=== PATIENT | female | born 1990 | race African-American/Black ===

== ENCOUNTER 2020-04-11 14:12 | Emergency (ER) | payer OTHER, SELFPAY ==
--- NOTE | ~2020-04-11 | CT_ITS ---
EXAMINATION: CTA brain carotid DATE: 04/11/2020 15:59 INDICATION: Right hemiparesis. TECHNIQUE: Computed tomographic angiography (CTA) of the head was performed without and with 100 mL O mnipaque-350 intravenous contrast. CTA of the neck was performed with intravenous contrast. Automated exposure control and iterative reconstruction technique were employed. The dose-length product was 1 783.17 mGy-cm. Maximum intensity projection and volume rendered 3D-reconstructions were created by georgie starks technologist on a separate workstation. COMPARISON: Head CT 12/13/2016 FINDINGS: HEAD CTA: There is no intracranial hemorrhage, acute infarction, or abnormal intracranial mass lesion . The ventricles are normal in size. The paranasal sinuses are clear. The orbits are normal. The mast oid air cells are normal. The vertebral arteries are codominant. There is no significant stenosis of the basilar artery or posterior cerebral arteries. There is no significant stenosis of the intracrani al internal carotid arteries or anterior or middle cerebral arteries. Anterior communicating artery i s normal. The posterior communicating arteries are normal. There is no aneurysm. NECK CTA: There is mild scarring at the lung apices. There are no pathologically enlarged lymph nodes . There is no significant stenosis of the vertebral arteries. There is no visible plaque in the proxi mal internal carotid arteries. There is 0% stenosis of the proximal right internal carotid artery rel ative to normal distal artery lumen diameter (NASCET criteria). There is 0% stenosis of the proximal left internal carotid artery relative to normal distal artery lumen diameter. There is kyphosis of ce rvical spine. IMPRESSION: 1. Normal brain. No aneurysm or significant intracranial arterial stenosis. 2. Normal neck arteries. Reviewed, dictated and finalized at location A.
[2020-04-11 14:16] VITALS: BP 155/96; PULSE 89; RESP 18; TEMP 36.1; O2SAT 99
--- NOTE | 2020-04-11 14:38 | ECG_ITS ---
Measurements Intervals [place] Rate: 81 P: 42 MA: 129 QRS: 26 QRSD: 105 T: 22 QT: 393 QTc: 459 Interpretive Statements SINUS RHYTHM WITH SINUS ARRHYTHMIA BORDERLINE ST-T WAVE ABNORMALITY- ANT/INF LEADS BASELINE ARTIFACT- I, II, III BORDERLINE ECG Electronically Signed On 04-11-2020 15:29:24 CDT by Booker Estrada D.O.
[2020-04-11 14:52] LABS: Basophils Percent Auto 0.4 % (0.2-1.2); Eosinophils Percent Auto 0.9 % (0-4.4); Hematocrit 41.1 % (37.0-47.0); Immature Granulocyte Absolute 0.01 K/mm3 (0.00-0.031); Immature Granulocyte Percent A 0.2 % (0-0.5); Lymphocytes Absolute Auto 2.32 K/mm3 (0.9-3.2); Lymphocytes Percent Auto 50.5 % (18.3-44.2); Mean Corpuscular HGB Conc 34.1 g/dl (32-36); Mean Corpuscular Hemoglobin 29.7 pg (26-34); Mean Corpuscular Volume 87.3 fl (80-100); Mean Platelet Volume 9.7 fl (7.4-10.4); Monocytes Absolute Auto 0.2 K/mm3 (0.1-0.6); Monocytes Percent Auto 5.2 % (2.6-8.5); Neutrophils Percent Auto 42.8 % (45.5-73.1); Platelet Count Result 361 k/mm3 (150-375); Red Blood Count 4.71 M/mm3 (4.2-5.4); Red Cell Distribution Width 12.9 % (11.5-14.5); White Blood Count 4.6 K/mm3 (4.5-10.0)
--- NOTE | 2020-04-11 15:01 | ED.NEUROSD ---
HPI - Neuro Symptoms/Deficit General Chief Complaint: Neuro Symptoms/Deficit Stated Complaint: right arm/leg numbness Time Seen by Provider: 04/11/20 14:20 Source: patient Mode of arrival: ambulatory Limitations: no limitations History of Present Illness HPI Narrative: This patient is a 29 year old female who presents for evaluation right arm and right leg numbness and pain that started 3 days ago. She has had constant pain to right arm and right leg. This pain may be worsened with movement. She also states some numbness and weakness. She denies dropping things with her right arm. She reports having a limp due to her right leg pain. She denies slurred speech, blurred vision, nausea, vomiting, dizziness or any other symptoms. Onset (ago): day(s) (3) Related Data Allergies Allergy/AdvReac Type Severity Reaction Status Date / Time No Known Allergies Allergy Unverified 04/11/20 14:15 Review of Systems Review of Systems: All systems reviewed & are unremarkable except as noted in HPI and below Constitutional: Constitutional: Denies chills and Denies fever(s) Eyes: Eyes: Denies blurry vision and Denies diplopia ENT: Denies dysphagia and Denies dizziness Cardiovascular: Cardiovascular: Denies chest pain and Denies slow heart rate Respiratory: Respiratory: Denies cough and Denies dyspnea Gastrointestinal: Gastrointestinal: Denies abdominal pain, Denies diarrhea, Denies nausea and Denies vomiting Genitourinary: Genitourinary: Denies hematuria, Denies flank pain and Denies vaginal discharge Musculoskeletal: Musculoskeletal: Denies back pain Neurologic: Denies dizziness, Reports focal weakness and Reports numbness PMFSH Past Medical History Medical History (Updated 04/11/20 @ 17:39 by Alicia Torres MD) Healthy adult Surgical History Surgical History (Updated 09/05/19 @ 09:00 by Nino Davis) H/O section Social History Social History (Updated 09/05/19 @ 09:00 by Nino Davis) Smoking status: Never smoker Alcohol intake: never Substance use: never Gender identity (if verbalized by the patient): Female Exam Narrative: Exam Narrative: GENERAL: Well-appearing, well-nourished, and in no acute distress. HEAD: Normocephalic, atraumatic EYES: PERRLA and EOMI, conjunctiva clear without discharge EARS: TM's clear bilaterally without erythema or dullness NOSE: Nares clear, no rhinorrhea or epistaxis THROAT:Mucous membranes moist, Oropharynx normal without erythema, exudate, peritonsillar swelling or fluctuance NECK: Supple, without lymphadenopathy or mass RESPIRATORY: No respiratory distress, Airway patent, Respirations non-labored, Clear to auscultation without rales, rhonchi or wheeze HEART: Regular rate and rhythm. No murmur heard. Normal peripheral pulses. ABDOMEN: Soft, nontender, nondistended, normal active bowel sounds. No masses. No rebound or guarding, No organomegaly. EXTREMITIES: No edema, normal strength with full range of motion. mild tenderness to right upper arm SKIN: Warm, dry, normal color without rash NEURO: Alert and oriented x3. CN 2-12 grossly intact. No focal deficits. PSYCH: Normal mood and affect. Course Reevaluation(s) Reevaluation #1: I have not found any neuro deficits on patient's physical exam and her CT is unremarkable. She is appears stable for discharge with outpatient evaluation. Date: 04/11/20 Time: 17:35 Consultations Consultation #1: I have discussed case with DR. Miranda who states patient can be evaluated as outpatient if stable. Date: 04/11/20 Time: 17:37 Vital Signs Vital signs: Vital Signs Temperature 97 F L 04/11/20 14:16 Pulse Rate 89 04/11/20 14:16 Respiratory Rate 18 04/11/20 14:16 Blood Pressure 155/96 H 04/11/20 14:16 Pulse Oximetry 99 04/11/20 14:16 Temperature 97 F L 04/11/20 14:16 Pulse Rate 78 04/11/20 18:12 Respiratory Rate 18 04/11/20 18:12 Blood Pressure 132/78 04/11/20 18:
[2020-04-11 15:03] LABS: Partial Thromboplastin Time 28.2 SECONDS (22.3-36.8)
[2020-04-11 15:08] LABS: Blood Urea Nitrogen 12 mg/dL (7-17); Calcium 10.3 mg/dL (8.4-10.2); Carbon Dioxide 25 mmol/L (22-30); Chloride 103 mmol/L (98-107); Estimated CRCL calculation 108 ml/min; Estimated Glomerular Filt Rate > 60; Glucose 77 mg/dL (65-105); Potassium 3.8 mmol/L (3.4-5.0); Sodium 138 mmol/L (137-145)
[2020-04-11 15:20] LABS: Troponin I < 0.012 ng/mL (0.000-0.034)
[2020-04-11 16:03] VITALS: BP 123/69; PULSE 74; RESP 20; O2SAT 99
[2020-04-11] MEDS: KETOROLAC 30 MG/ML VIAL (*BKC) IV PUSH (16:53)
[2020-04-11 18:12] VITALS: BP 132/78; PULSE 78; RESP 18; O2SAT 99
== END 2020-04-11 18:15 | disposition home or self-care (01) ==
PROVIDERS: Emergency Provider General Practice
DX: R20.2 Paresthesia of skin (principal); M79.601 Pain in right arm; R94.31 Abnormal electrocardiogram [ECG] [EKG]
CPT/HCPCS: 36415; 70496; 70498; 80048; 81025; 84484; 85025; 85610; 85730; 93005; 96374; 99284; J1885; Q9967

== ENCOUNTER 2020-06-09 02:34 | Emergency (ER) | payer OTHER, SELFPAY ==
--- NOTE | ~2020-06-09 | XR_ITS ---
EXAMINATION: XR chest 2V DATE: 06/09/2020 03:28 INDICATION: Left-sided chest pain and bilateral shoulder pain. TECHNIQUE: PA and lateral views of the chest were obtained. COMPARISON: Chest radiograph dated 12/04/2019 FINDINGS: The lungs remain clear with no focal airspace opacities, pulmonary edema, pleural effusion or pneumot horax. The cardiomediastinal silhouette is normal. Visualized bones and soft tissues are unremarkable . IMPRESSION: 1. Normal chest radiograph. Reviewed, dictated and finalized at location A. IMPRESSION: 1. Normal chest radiograph.
[2020-06-09 02:38] VITALS: BP 126/88; PULSE 91; RESP 18; TEMP 36; O2SAT 100
--- NOTE | 2020-06-09 02:46 | ED.GENADULT ---
HPI - General Adult General Chief complaint: Unspecified Stated complaint: sob, pain in both shoulders Time Seen by Provider: 06/09/20 02:38 History of Present Illness HPI narrative: Around 0100 she developed aching pain in the shoulders and arms bilaterally. She tried taking ibuprofen. The pain is now only in the left shoulder and radiates to the neck and down to the forearm. This is assoicated with mild pressure in the chaest and SOB. She has never had these symptoms before. Related Data Allergies Allergy/AdvReac Type Severity Reaction Status Date / Time No Known Allergies Allergy Unverified 04/11/20 14:15 Review of Systems Review of Systems: All systems reviewed & are unremarkable except as noted in HPI and below Constitutional: Constitutional: Denies fever(s) Cardiovascular: Cardiovascular: Reports chest pain and Reports radiating jaw, neck or arm pain Respiratory: Respiratory: Reports dyspnea Gastrointestinal: Gastrointestinal: Denies nausea PMFSH Past Medical History Medical History Healthy adult Surgical History Surgical History H/O section Social History Social History Smoking status: Never smoker Alcohol intake: never Substance use: never Gender identity (if verbalized by the patient): Female Exam Const: General: healthy appearing, no acute distress and alert Orientation/consciousness: patient oriented x3 HENMT: Head: normal to inspection Neck: Neck: normal visual inspection and no lymphadenopathy Chest: Chest palpation & inspection: no tenderness Resp: Effort & Inspection: normal respiratory effort Auscultation: clear to auscultation bilaterally, no rales, no rhonchi and no wheezes Cardio: Jugular venous distension: no JVD Rate: regular rate Rhythm: regular rhythm Heart sounds: no murmurs GI: GI Palp: Yes Soft to palpation and No Tenderness to palpation present (GI) Skin: General skin exam: normal color Neuro: General: patient oriented x3 and moves all extremities Speech: normal speech Psych: Appearance: well kempt Affect: normal affect Course Vital Signs Vital signs: Vital Signs Temperature 36.0 C L 06/09/20 02:38 Pulse Rate 91 06/09/20 02:38 Respiratory Rate 18 06/09/20 02:38 Blood Pressure 126/88 06/09/20 02:38 Pulse Oximetry 100 06/09/20 02:38 Temperature 36.3 C L 06/09/20 04:13 Pulse Rate 84 06/09/20 04:13 Respiratory Rate 19 06/09/20 04:13 Blood Pressure 129/63 06/09/20 04:13 Pulse Oximetry 100 06/09/20 04:13 Medical Decision Making MDM Narrative Medical decision making narrative: EKG unchanged from 2 months ago. Symptoms atypical. Vitals normal. CXR negative. Medical Records Medical records reviewed: Yes I reviewed the patient's medical records. Vital Signs Vital Signs: Vital Signs Temperature 36.0 C L 06/09/20 02:38 Pulse Rate 91 06/09/20 02:38 Respiratory Rate 18 06/09/20 02:38 Blood Pressure 126/88 06/09/20 02:38 Pulse Oximetry 100 06/09/20 02:38 Temperature 36.3 C L 06/09/20 04:13 Pulse Rate 84 06/09/20 04:13 Respiratory Rate 19 06/09/20 04:13 Blood Pressure 129/63 06/09/20 04:13 Pulse Oximetry 100 06/09/20 04:13 Imaging Data Attestation: I personally reviewed and interpreted this imaging study as follows: My impression: CXR negative for any acute process Discharge Plan Discharge Clinical Impression: Atypical chest pain Patient Disposition: Home, Self-Care Condition: Stable Instructions: Chest Pain (ED) Prescriptions: No Action naproxen 500 mg tablet 500 mg PO BID PRN (Reason: pain) Qty: 20 RF: 0 Interventions: Discharge Disposition Last Done: 06/09/20 04:13 IV Stop Time Documented Last Done: 06/09/20 04:14 Follow-up/Referrals: Breezy,RICHARD Whaley [Primary C
--- NOTE | 2020-06-09 03:05 | ECG_ITS ---
Measurements Intervals [place] Rate: 84 P: 50 VA: 136 QRS: 27 QRSD: 90 T: 13 QT: 372 QTc: 441 Interpretive Statements SINUS RHYTHM WITH SINUS ARRHYTHMIA BORDERLINE T WAVE ABNORMALITY- ANTERIOR LEADS BORDERLINE ECG Electronically Signed On 06-09-2020 7:18:37 CDT by Booker Estrada D.O.
[2020-06-09 04:13] VITALS: BP 129/63; PULSE 84; RESP 19; TEMP 36.3; O2SAT 100
[2020-06-09] MEDS: ACETAMINOPHEN 500 MG TABLET 1000 MG PO (04:15)
== END 2020-06-09 04:14 | disposition home or self-care (01) ==
PROVIDERS: Emergency Provider Emergency Medicine; PCP Nurse Practitioner
DX: R07.89 Other chest pain (principal); R94.31 Abnormal electrocardiogram [ECG] [EKG]
CPT/HCPCS: 71046; 93005; 99283; A9270

== ENCOUNTER 2020-09-05 23:23 | Emergency (ER) | payer OTHER, SELFPAY ==
--- NOTE | ~2020-09-05 | CT_ITS ---
EXAMINATION: CT brain wo con DATE: 09/06/2020 00:16 INDICATION: Left hemiparesis. TECHNIQUE: Computed tomography (CT) of the head was performed without intravenous contrast. The mA wa s adjusted according to patient size. Iterative reconstruction technique was employed. The dose-lengt h product was 605.33 mGy-cm. COMPARISON: Head CT 04/11/2020 FINDINGS: There is no intracranial hemorrhage, acute infarction, or abnormal intracranial mass lesion . The ventricles are normal in size. The paranasal sinuses are clear. There is a trace right mastoid effusion. IMPRESSION: 1. Normal brain. Reviewed, dictated and finalized at location A. R AND CHASSIS INSPECTOR IMPRESSION: 1. Normal brain.
--- NOTE | ~2020-09-05 | XR_ITS ---
EXAMINATION: XR chest 2V DATE: 09/06/2020 00:16 INDICATION: Left-sided numbness. Shortness of breath. TECHNIQUE: Frontal and lateral views of the chest were obtained. COMPARISON: Chest 2 views 06/09/2020 FINDINGS: The chest demonstrates clear lungs without pneumonia, pleural effusion, or pneumothorax. Th e heart size is normal. IMPRESSION: 1. No acute cardiopulmonary disease. Reviewed, dictated and finalized at location A. TUBE SETTER
[2020-09-05 23:21] VITALS: BP 131/87; PULSE 94; RESP 25; TEMP 37.1; O2SAT 100
--- NOTE | 2020-09-05 23:30 | ED.NEUROSD ---
HPI - Neuro Symptoms/Deficit General Chief Complaint: Neuro Symptoms/Deficit Stated Complaint: numbness/ tingling Time Seen by Provider: 09/05/20 23:30 Source: patient and EMS Mode of arrival: EMS Limitations: no limitations History of Present Illness HPI Narrative: Patient is a 30-year-old female who presents for evaluation of left-sided numbness and tingling that began approximately an hour prior to arrival. Patient states that she was laying down on the floor using her phone when all of a sudden her left hand and left leg began to tingle. She denied any actual numbness or weakness. She is able to ambulate. Patient called EMS, when EMS arrived patient was reporting some dizziness and was hyperventilating. She stated to them that she has a history of chronic headache pain and chronic back pain for which she has follow-up with her primary care physician. Currently, patient is quite comfortable appearing. She does still endorse tingling in her left upper extremity and left lower extremity. She denies any recent illnesses. She denies any fever, chills, chest pain or shortness of breath. She denies any headache or vision changes. Related Data Home Medications Medication Instructions Recorded Confirmed No Home Medications 09/05/20 09/05/20 Allergies Allergy/AdvReac Type Severity Reaction Status Date / Time No Known Allergies Allergy Verified 09/05/20 23:30 Review of Systems Review of Systems: Narrative: CONSTITUTIONAL: Denies fever, chills, or sweats. EYES: Denies visual changes, redness, or discharge. ENT: Denies rhinorrhea, congestion, sore throat, or otalgia. CARDIOVASCULAR: Denies chest pain, palpitations, or edema. RESPIRATORY: Denies cough or dyspnea. GASTROINTESTINAL: Denies abdominal pain, nausea, vomiting, or diarrhea. GENITOURINARY: Denies dysuria or hematuria. SKIN: Denies rash or itching. MUSCULOSKELETAL: Reports chronic back pain NEUROLOGIC: Denies headache, reports tingling in her left upper extremity and left lower extremity, denies weakness PMFSH Past Medical History Medical History (Updated 09/06/20 @ 01:21 by Kelsey Goodrich MD) Healthy adult Surgical History Surgical History H/O section Social History Social History Smoking status: Never smoker Alcohol intake: never Substance use: never Gender identity (if verbalized by the patient): Female Exam Narrative: Exam Narrative: GENERAL: Awake, alert, conversant HEAD: Normocephalic, atraumatic. EYES: PERRLA and EOMI. ENT: Nares clear, no rhinorrhea or epistaxis. Mucous membranes moist. NECK: Supple. CHEST: No respiratory distress, breathing even and non labored HEART: Regular rate, sinus rhythm ABDOMEN:Non distended, non tender EXTREMITIES: Normal range of motion. No edema. SKIN: Warm, dry, no rash. NEURO:No focal deficits. Alert and oriented x3. Finger to nose intact bilaterally. EOMs intact without nystagmus. No facial droop/asymmetry noted bilaterally. Grimace intact. Intact sensation in face. Hearing intact bilaterally. Shoulder shrug intact. Strength 5/5 bilateral upper extremities. Strength 5/5 bilateral lower extremities. Reflexes 2+ patellar. Heel to burch intact bilaterally. Patient is ambulatory with a narrow based, steady gait, no ataxia. Course Vital Signs Vital signs: Vital Signs Temperature 37.1 C 09/05/20 23:21 Pulse Rate 94 09/05/20 23:21 Respiratory Rate 25 H 09/05/20 23:21 Blood Pressure 131/87 09/05/20 23:21 Pulse Oximetry 100 09/05/20 23:21 Temperature 37.1 C 09/05/20 23:21 Pulse Rate 69 09/06/20 00:45 Respiratory Rate 15 09/06/20 00:45 Blood Pressure 121/77 09/06/20 00:31 Pulse Oximetry 100 09/06/20 00:45 MDM - Neuro Symptoms/Deficit MDM Narrative Medical decision making narrative: The patient presented for evaluation of left arm tingling, left l
[2020-09-05 23:52] VITALS: PULSE 73; RESP 15; O2SAT 100
[2020-09-06] VITALS (8 sets, daily range): BP systolic 121–135; BP diastolic 77–97; PULSE 62–76; RESP 14–17; O2SAT 98–100
[2020-09-06] MEDS: SODIUM CHLORIDE 0.9% IV 1,000 ML 999 ML IV CONT (00:01)
--- NOTE | 2020-09-06 00:06 | PC.NURSE ---
Patient taken to CT.
[2020-09-06 00:11] LABS: Basophils Percent Auto 0.2 % (0.2-1.2); Eosinophils Absolute Auto 0.1 K/mm3 (0-0.3); Eosinophils Percent Auto 1.1 % (0-4.4); Hematocrit 34.9 % (37.0-47.0); Hemoglobin 11.8 g/dL (12.0-15.0); Lymphocytes Absolute Auto 2.35 K/mm3 (0.9-3.2); Mean Corpuscular HGB Conc 33.8 g/dl (32-36); Mean Corpuscular Hemoglobin 29.3 pg (26-34); Mean Corpuscular Volume 86.6 fl (80-100); Mean Platelet Volume 8.9 fl (7.4-10.4); Monocytes Absolute Auto 0.2 K/mm3 (0.1-0.6); Monocytes Percent Auto 4.6 % (2.6-8.5); Neutrophils Percent Auto 43.1 % (45.5-73.1); Platelet Count Result 278 k/mm3 (150-375); Red Blood Count 4.03 M/mm3 (4.2-5.4); Red Cell Distribution Width 12.1 % (11.5-14.5); White Blood Count 4.6 K/mm3 (4.5-10.0)
[2020-09-06 00:22] LABS: Partial Thromboplastin Time 26.5 SECONDS (22.3-36.8); Prothrombin Time 14.2 Seconds (11.1-14.7)
[2020-09-06 00:23] LABS: Anion Gap 13 mmol/L (8-16); Blood Urea Nitrogen 13 mg/dL (7-17); Calcium 9.8 mg/dL (8.4-10.2); Carbon Dioxide 21 mmol/L (22-30); Chloride 105 mmol/L (98-107); Estimated CRCL calculation 110 ml/min; Estimated Glomerular Filt Rate > 60; Glucose 100 mg/dL (65-105); Potassium 3.3 mmol/L (3.4-5.0); Sodium 139 mmol/L (137-145)
--- NOTE | 2020-09-06 00:29 | PC.NURSE ---
Patient ambulated to the bathroom and back to her stretcher with a steady gait.
[2020-09-06 00:37] LABS: Troponin I < 0.012 ng/mL (0.000-0.034)
[2020-09-06 01:11] LABS: Add Urine Microscopic? YES; Appearance Urine Clear (Clear); Bacteria Urine Trace /hpf; Bilirubin Urine Negative (Negative); Blood Urine Negative (Negative); Color Urine Straw (Yellow); Glucose Urine UA Negative (Negative); Ketones Urine 1+ mg/dL (Negative); Leukocyte Esterase Ur Negative LEU/UL (Negative); Nitrate Urine Negative (Negative); Protein Urine Negative (Negative); RBC Urine 0-2 /hpf (0-2); Specific Grav Ur 1.012 (1.001-1.035); Squamous Epithelial Cell Urine Occasional /hpf (Few); Urobilinogen Urine Negative mg/dL (<2.0); WBC Urine 0-3 /hpf
== END 2020-09-06 01:34 | disposition home or self-care (01) ==
PROVIDERS: Emergency Provider Emergency Medicine; PCP Nurse Practitioner
DX: R20.2 Paresthesia of skin (principal); R94.31 Abnormal electrocardiogram [ECG] [EKG]
CPT/HCPCS: 36415; 70450; 71046; 80048; 81001; 81025; 84484; 85025; 85610; 85730; 93005; 96360; 99284; J7030

== ENCOUNTER 2021-03-12 17:16 | Emergency (ER) | payer BC, SELFPAY ==
[2021-03-12 17:31] VITALS: BP 139/81; PULSE 94; RESP 20; TEMP 36.4; O2SAT 99
[2021-03-12 17:42] LABS: Basophils Percent Auto 0.5 % (0.2-1.2); Hematocrit 36.6 % (37.0-47.0); Hemoglobin 12.1 g/dL (12.0-15.0); Lymphocytes Absolute Auto 1.92 K/mm3 (0.9-3.2); Lymphocytes Percent Auto 45.6 % (18.3-44.2); Mean Corpuscular HGB Conc 33.1 g/dl (32-36); Mean Corpuscular Hemoglobin 29.3 pg (26-34); Mean Corpuscular Volume 88.6 fl (80-100); Monocytes Absolute Auto 0.3 K/mm3 (0.1-0.6); Monocytes Percent Auto 6.9 % (2.6-8.5); Neutrophils Absolute Auto 1.9 K/mm3 (1.3-6.7); Platelet Count Result 285 k/mm3 (150-375); Red Blood Count 4.13 M/mm3 (4.2-5.4); Red Cell Distribution Width 12.5 % (11.5-14.5); White Blood Count 4.2 K/mm3 (4.5-10.0)
[2021-03-12 18:11] LABS: Beta HCG Quantitative 7.07 mIU/ML
[2021-03-12 18:37] LABS: Add Urine Microscopic? YES; Appearance Urine Cloudy (Clear); Bilirubin Urine Negative (Negative); Blood Urine 3+ (Negative); Color Urine Yellow (Yellow); Glucose Urine UA Negative (Negative); Ketones Urine Negative (Negative); Leukocyte Esterase Ur Negative LEU/UL (Negative); Mucus Urine Rare /lpf; Nitrate Urine Negative (Negative); Protein Urine 1+ mg/dL (Negative); RBC Urine >75 /hpf (0-2); Specific Grav Ur 1.024 (1.001-1.035); Squamous Epithelial Cell Urine Many /hpf (Few)
[2021-03-12 19:31] VITALS: BP 136/97; PULSE 83; RESP 18; O2SAT 99
--- NOTE | 2021-03-12 20:06 | ED.ABDPAIN ---
HPI - Abdominal Pain General Chief Complaint: MANAGER ACQUISITION Stated Complaint: 5 weeks ,r side,shoulder and neck pain Time Seen by Provider: 03/12/21 19:31 Source: patient and RN notes reviewed Mode of arrival: ambulatory Limitations: no limitations History of Present Illness HPI narrative: This is 30 year old female who presents for evaluation of right lower abdominal pain. Her last menstrual period was 02/11/21 and she reports having a positive test 1 week ago. She developed intermittent right lower abdominal pain for 2 days. She also reports right shoulder pain that is intermittent. She has not taken anything for pain. She also reports she developed vaginal bleeding today that is heavy like period. She denies fever, chills, nausea, vomiting. Related Data Home Medications Medication Instructions Recorded Confirmed No Home Medications 09/05/20 09/05/20 Allergies Allergy/AdvReac Type Severity Reaction Status Date / Time No Known Allergies Allergy Verified 03/12/21 20:51 Review of Systems Review of Systems: All systems reviewed & are unremarkable except as noted in HPI and below PMFSH Past Medical History Medical History (Updated 03/13/21 @ 00:00 by Jesus Gibson) Healthy adult Surgical History Surgical History H/O section Social History Social History Smoking status: Never smoker Alcohol intake: never Substance use: never Gender identity (if verbalized by the patient): Female Exam Const: General: no acute distress and alert Orientation/consciousness: patient oriented x3 Eyes: EOM: EOMs intact bilaterally Resp: Effort & Inspection: normal respiratory effort and no retractions Auscultation: clear to auscultation bilaterally Cardio: Rate: regular rate Rhythm: regular rhythm Heart sounds: no murmurs GI: GI Palp: Yes Soft to palpation, No Tenderness to palpation present (GI) and No Guarding due to palpation present (GI) Auscultation: normal bowel sounds : Speculum Exam - Cervix: Cervical os closed Bimanual Exam- Adnexa, other: no masses Other: dark blood in vaginal vault, no clots Skin: General skin exam: normal color Rashes: no rashes Neuro: General: patient oriented x3, moves all extremities and CN's II-XI intact bilaterally Psych: Mental Status: mental status grossly normal Affect: normal affect Course Reevaluation(s) Reevaluation #1: I Discussed with patient she is likely having a miscarriage . She was given return precautions and to return with worsening pain and bleeding. I performed bedside US and no Free fluid seen on exam. Date: 03/12/21 Time: 21:23 Consultations Consultation #1: I discussed case with Dr. monroy. She agrees patient is likely having miscarriage. She will follow up with patient. I will order repeat HCG on Monday and patient should call Dr. Monroy on Monday. Date: 03/12/21 Time: 21:04 Vital Signs Vital signs: Vital Signs Temperature 97.6 F 03/12/21 17:31 Pulse Rate 94 03/12/21 17:31 Respiratory Rate 20 03/12/21 17:31 Blood Pressure 139/81 03/12/21 17:31 Pulse Oximetry 99 03/12/21 17:31 Temperature 97.6 F 03/12/21 17:31 Pulse Rate 72 03/12/21 21:37 Respiratory Rate 16 03/12/21 21:37 Blood Pressure 120/94 H 03/12/21 21:37 Pulse Oximetry 100 03/12/21 21:37 MDM - Abdominal Pain Lab Data Attestation: I reviewed the patient's lab results. Result diagrams: 03/12/21 17:36 Labs: Lab Results 03/12/21 03/12/21 03/12/21 Range/Units 17:36 17:36 17:36 WBC 4.2 L (4.5-10.0) K/mm3 RBC 4.13 L (4.2-5.4) M/mm3 Hgb 12.1 (12.0-15.0) g/dL Hct 36.6 L (37.0-47.0) % MCV 88.6 (80-100) fl MCH 29.3 (26-34) pg MCHC 33.1 (32-36) g/dl RDW 12.5 (11.5-14.5) % Plt Count 285 (150-375) k/mm3 MPV 9.0 (7.4-10.4) f
[2021-03-12 21:08] VITALS: BP 121/81; PULSE 73
[2021-03-12 21:09] VITALS: BP 124/95; PULSE 71
[2021-03-12 21:10] VITALS: BP 130/97; PULSE 75
[2021-03-12 21:37] VITALS: BP 120/94; PULSE 72; RESP 16; O2SAT 100
== END 2021-03-12 21:36 | disposition home or self-care (01) ==
PROVIDERS: Emergency Medicine; Emergency Provider General Practice; PCP Nurse Practitioner
DX: O03.9 Complete or unspecified spontaneous abortion without complication (principal)
CPT/HCPCS: 36415; 81001; 81025; 84702; 85025; 85461; 96365; 99284; J0131

== ENCOUNTER 2021-03-15 15:54 | Outpatient (CLI) | payer BC, SELFPAY ==
[2021-03-15 17:49] LABS: Beta HCG Quantitative < 2.39 mIU/ML
== END 2021-03-15 15:55 | disposition home or self-care (01) ==
PROVIDERS: PCP Nurse Practitioner; Visit Provider Obstetrics & Gynecology Gynecology
DX: Z36.89 Encounter for other specified antenatal screening (principal)
CPT/HCPCS: 36415; 84702

== ENCOUNTER 2021-03-24 11:21 | Emergency (ER) | payer BC, SELFPAY ==
--- NOTE | ~2021-03-24 | US_ITS ---
EXAMINATION: US pelvic complete w TV DATE: 03/24/2021 17:19 INDICATION: Right adnexal pain Comparison:Right adnexal pain for 2 weeks TECHNIQUE: Multiple transabdominal and endovaginal sonographic images of the pelvis performed. FINDINGS: The uterus measures 8.4 x 4.1 x 3.9 cm. The endometrial complex measures 3 mm. The right ovary measures 3.9 x 3.2 x 1.8 cm and the left ovary measures 3.1 x 2.7 x 1.9 cm. There ar e small follicles in each ovary. Normal doppler signal in both ovaries. There is no free fluid in the pelvis. There are no abnormal masses seen on either side. IMPRESSION: 1. Normal pelvic ultrasound. Reviewed, dictated and finalized at location A.
[2021-03-24 11:34] VITALS: BP 119/84; PULSE 84; RESP 18; TEMP 36.2; O2SAT 100
[2021-03-24 14:28] VITALS: BP 129/85; PULSE 55; TEMP 36.7; O2SAT 100
[2021-03-24 16:02] VITALS: BP 128/84; PULSE 82; RESP 17; O2SAT 100
[2021-03-24] MEDS: SODIUM CHLORIDE 0.9% IV 1,000 ML 999 ML IV CONT (16:41)
--- NOTE | 2021-03-24 16:41 | ED.HA ---
HPI - Headache General Chief Complaint: Headache Stated Complaint: headache Time Seen by Provider: 03/24/21 16:04 Source: patient, RN notes reviewed and old records reviewed Mode of arrival: ambulatory Limitations: no limitations History of Present Illness HPI Narrative: Patient is a 30-year-old female who presents to emergency department with right adnexal pain and headache patient has had this discomfort since having a miscarriage 2 weeks ago patient was initially seen in the emergency department had bedside ultrasound and hCG had repeat values 2 days later which had normalized was diagnosed with miscarriage but never followed up with the recommended gynecological visit or primary care. Patient notes she has had persistent headache and right adnexal pain for the last 2 weeks. Patient denies vaginal discharge bleeding urinary symptoms or other complaints. Patient is G5, P4. Related Data Allergies Allergy/AdvReac Type Severity Reaction Status Date / Time No Known Allergies Allergy Verified 03/24/21 16:04 Review of Systems Review of Systems: All systems reviewed & are unremarkable except as noted in HPI and below PMFSH Past Medical History Medical History (Updated 03/24/21 @ 17:59 by Bubba Brown PA-C) Healthy adult Surgical History Surgical History H/O section Social History Social History Smoking status: Never smoker Alcohol intake: never Substance use: never Gender identity (if verbalized by the patient): Female Exam Narrative: Exam Narrative: GENERAL: Well-appearing, well-nourished, and in no acute distress. HEAD: Normocephalic, atraumatic. EYES: PERRLA and EOMI. ENT: Nares clear, no rhinorrhea or epistaxis. Mucous membranes moist. CHEST: Clear to auscultation. No respiratory distress. No wheezes rales or rhonchi HEART: Regular rate and rhythm. No murmur heard. Normal peripheral pulses. ABDOMEN: Soft, right adnexal tenderness remainder of abdomen nontender, nondistended, normal active bowel sounds. EXTREMITIES: Normal range of motion. No edema. SKIN: Warm, dry, no rash. NEURO: No focal deficits. Alert and oriented x3. PSYCH: Normal mood and affect. Course Course Emergency Course: Patient in the room no distress no high risk changes in her evaluation will be discharged home for outpatient follow-up made aware of case findings treatment plan and diagnosis Vital Signs Vital signs: Vital Signs Temperature 97.1 F L 03/24/21 11:34 Pulse Rate 84 03/24/21 11:34 Respiratory Rate 18 03/24/21 11:34 Blood Pressure 119/84 03/24/21 11:34 Pulse Oximetry 100 03/24/21 11:34 Temperature 98.0 F 03/24/21 14:28 Pulse Rate 69 03/24/21 17:53 Respiratory Rate 15 03/24/21 17:53 Blood Pressure 116/63 03/24/21 17:53 Pulse Oximetry 98 03/24/21 17:53 MDM - Headache MDM Narrative Medical decision making narrative: Patients headache was not sudden or maximal in onset. There are o focal neurological deficits on exam. Subarachnoid hemorrhage is felt to be unlikey at this time. There is no history of fever, and neck is supple without meningismus, making meningitis unlikely. No traumatic history or signs of trauma on exam. No risk factors for CVA, risk factors reviewed. NO ocular signs on exam and in history to suggest acute glaucoma. Patients headache is felt to be a reasonable candidate for outpatient evaluation Lab Data Result diagrams: 03/24/21 16:34 03/24/21 16:34 Labs: Lab Results 03/24/21 03/24/21 03/24/21 Range/Units 16:34 16:34 16:42 WBC 4.0 L (4.5-10.0) K/mm3 RBC 4.33 (4.2-5.4) M/mm3 Hgb 12.6 (12.0-15.0) g/dL Hct 37.9 (37.0-47.0) % MCV 87.5 (80-100) fl MCH 29.1 (26-34) pg MCHC 33.2 (32-36) g/dl RDW 12.7 (11.5-14.5) % Plt Count 272 (150-375) k/mm3 MPV 9.1 (7.4-10.
[2021-03-24 16:44] LABS: Basophils Percent Auto 0.5 % (0.2-1.2); Eosinophils Percent Auto 0.7 % (0-4.4); Hematocrit 37.9 % (37.0-47.0); Hemoglobin 12.6 g/dL (12.0-15.0); Immature Granulocyte Absolute 0.01 K/mm3 (0.00-0.031); Immature Granulocyte Percent A 0.2 % (0-0.5); Lymphocytes Absolute Auto 1.93 K/mm3 (0.9-3.2); Lymphocytes Percent Auto 47.8 % (18.3-44.2); Mean Corpuscular HGB Conc 33.2 g/dl (32-36); Mean Corpuscular Hemoglobin 29.1 pg (26-34); Mean Corpuscular Volume 87.5 fl (80-100); Mean Platelet Volume 9.1 fl (7.4-10.4); Monocytes Absolute Auto 0.2 K/mm3 (0.1-0.6); Monocytes Percent Auto 4.7 % (2.6-8.5); Neutrophils Absolute Auto 1.9 K/mm3 (1.3-6.7); Neutrophils Percent Auto 46.1 % (45.5-73.1); Platelet Count Result 272 k/mm3 (150-375); Red Blood Count 4.33 M/mm3 (4.2-5.4); Red Cell Distribution Width 12.7 % (11.5-14.5)
[2021-03-24 16:57] LABS: Add Urine Microscopic? NO; Appearance Urine Clear (Clear); Bilirubin Urine Negative (Negative); Blood Urine Negative (Negative); Color Urine Yellow (Yellow); Glucose Urine UA Negative (Negative); Ketones Urine Negative (Negative); Leukocyte Esterase Ur Negative LEU/UL (Negative); Nitrate Urine Negative (Negative); Protein Urine Negative (Negative); Specific Grav Ur 1.014 (1.001-1.035); Urobilinogen Urine Negative mg/dL (<2.0)
[2021-03-24 17:16] LABS: Alanine Aminotransferase 13 U/L (4-35); Albumin Level 4.6 g/dL (3.5-5.1); Alkaline Phosphatase 83 U/L (38-126); Anion Gap 8 mmol/L (8-16); Aspartate Amino Transferase 26 U/L (14-36); Bilirubin,Total 0.6 mg/dL (0.2-1.3); Blood Urea Nitrogen 13 mg/dL (7-17); Calcium 9.9 mg/dL (8.4-10.2); Carbon Dioxide 26 mmol/L (22-30); Chloride 105 mmol/L (98-107); Estimated CRCL calculation 96 ml/min; Estimated Glomerular Filt Rate > 60; Glucose 84 mg/dL (65-105); Sodium 139 mmol/L (137-145)
[2021-03-24] MEDS: KETOROLAC 30 MG/ML VIAL (*BKC) IV PUSH (17:49)
[2021-03-24 17:53] VITALS: BP 116/63; PULSE 69; RESP 15; O2SAT 98
== END 2021-03-24 18:11 | disposition home or self-care (01) ==
PROVIDERS: Emergency Medicine Emergency Medical Services; Emergency Provider Emergency Medicine; PCP Nurse Practitioner
DX: R51.9 Headache, unspecified (principal); R10.9 Unspecified abdominal pain
CPT/HCPCS: 36415; 76830; 76856; 80053; 81003; 81025; 85025; 96361; 96365; 96375; 99284; J0131; J1885; J7030

== ENCOUNTER 2021-10-20 18:12 | Emergency (ER) | payer BC, SELFPAY ==
--- NOTE | ~2021-10-20 | XR_ITS ---
EXAMINATION: XR chest 2V DATE: 10/20/2021 18:48 INDICATION: Midsternal and back pain radiating to the left side of the chest TECHNIQUE: PA and lateral views of the chest were obtained. COMPARISON: Chest radiograph dated 09/06/20 FINDINGS: The lungs remain clear with no focal airspace opacities, pulmonary edema, pleural effusion or pneumot horax. The cardiomediastinal silhouette is normal. Visualized bones and soft tissues are unremarkable . IMPRESSION: 1. Normal chest radiograph. Reviewed, dictated and finalized at location H. DENT PHYSICIAN IMPRESSION: 1. Normal chest radiograph.
--- NOTE | ~2021-10-20 | CT_ITS ---
EXAMINATION: CTA chest PE protocol DATE: 10/20/2021 23:53 INDICATION: Chest pain. Elevated d-dimer. TECHNIQUE: Computed tomography (CT) pulmonary angiogram of the chest was performed with 100 mL Omnipa que-350 intravenous contrast. Additional 3D reconstructions utilizing coronal maximum intensity proje ction (MIP) were performed. Automated exposure control and iterative reconstruction technique were em ployed. The dose-length product was 188.75 mGy-cm. COMPARISON: None FINDINGS: Excellent contrast opacification of the pulmonary arteries. There is mild streak artifact from dense contrast in the superior vena cava and right atrium. Minimal respiratory motion artifact which does n ot significantly limit evaluation. No pulmonary embolism. No pneumonia, pulmonary edema, pleural effu burton or pneumothorax. Heart size is normal. No pericardial effusion. Thoracic aorta is normal in jose rafael lissette with no dissection. No pathologically enlarged thoracic lymphadenopathy. Visualized upper abdomen is unremarkable. Pseudoarticulation between the posterior right fifth and sixth ribs. Bones are othe rwise unremarkable. IMPRESSION: 1. No pulmonary embolism or other acute cardiopulmonary disease. Reviewed, dictated and finalized at location . [employer]ES
[2021-10-20 18:18] VITALS: BP 128/85; PULSE 110; RESP 18; TEMP 37.7; O2SAT 100
--- NOTE | 2021-10-20 18:21 | ECG_ITS ---
Measurements Intervals [place] Rate: 103 P: 62 ND: 123 QRS: 37 QRSD: 72 T: 10 QT: 315 QTc: 412 Interpretive Statements SINUS TACHYCARDIA BORDERLINE ST-T WAVE ABNORMALITY- ANT/INF LEADS BORDERLINE ECG Electronically Signed On 10-21-2021 7:39:44 STRAIGHT CUTTER by Booker Estrada D.O.
[2021-10-20 18:37] LABS: Basophils Percent Auto 0.4 % (0.2-1.2); Hematocrit 35.9 % (37.0-47.0); Hemoglobin 12.1 g/dL (12.0-15.0); Lymphocytes Absolute Auto 0.45 K/mm3 (0.9-3.2); Lymphocytes Percent Auto 17.6 % (18.3-44.2); Mean Corpuscular HGB Conc 33.7 g/dl (32-36); Mean Corpuscular Hemoglobin 29.6 pg (26-34); Mean Corpuscular Volume 87.8 fl (80-100); Monocytes Absolute Auto 0.4 K/mm3 (0.1-0.6); Monocytes Percent Auto 16.4 % (2.6-8.5); Neutrophils Absolute Auto 1.7 K/mm3 (1.3-6.7); Neutrophils Percent Auto 65.6 % (45.5-73.1); Platelet Count Result 210 k/mm3 (150-375); Red Blood Count 4.09 M/mm3 (4.2-5.4); Red Cell Distribution Width 13.4 % (11.5-14.5); White Blood Count 2.6 K/mm3 (4.5-10.0)
[2021-10-20 18:47] LABS: INR 1.1; Prothrombin Time 14.2 Seconds (11.1-14.7)
[2021-10-20 18:48] LABS: Partial Thromboplastin Time 26.6 SECONDS (22.3-36.8)
[2021-10-20 18:49] LABS: Alanine Aminotransferase 14 U/L (4-35); Albumin Level 4.8 g/dL (3.5-5.1); Alkaline Phosphatase 102 U/L (38-126); Anion Gap 11 mmol/L (8-16); Aspartate Amino Transferase 23 U/L (14-36); Bilirubin,Total 0.2 mg/dL (0.2-1.3); Blood Urea Nitrogen 9 mg/dL (7-17); Calcium 9.4 mg/dL (8.4-10.2); Carbon Dioxide 17 mmol/L (22-30); Chloride 104 mmol/L (98-107); Estimated CRCL calculation 84 ml/min; Estimated Glomerular Filt Rate > 60; Glucose 100 mg/dL (65-110); Lipase 66 U/L (23-300); Potassium 3.5 mmol/L (3.4-5.0); Sodium 132 mmol/L (137-145)
[2021-10-20 18:59] LABS: Troponin I < 0.012 ng/mL (0.000-0.034)
[2021-10-20 22:19] VITALS: BP 117/83; PULSE 97; RESP 18; O2SAT 100
--- NOTE | 2021-10-20 22:36 | ED.CHESTPAIN ---
HPI - Chest Pain General Chief Complaint: Chest Pain Stated Complaint: back pain Time Seen by Provider: 10/20/21 22:24 Source: patient Mode of arrival: ambulatory Limitations: no limitations History of Present Illness HPI narrative: Patient is a 31-year-old female complaining of left chest wall pain, 6 out of 10, sharp, radiating to left upper back started yesterday. Patient also complaining of dysuria that started today. Patient denies any shortness of breath, abdominal pain, nausea, vomiting, diaphoresis, fever or chills. Related Data Allergies Allergy/AdvReac Type Severity Reaction Status Date / Time sumatriptan [From Imitrex] AdvReac Other Verified 10/20/21 22:23 Review of Systems Review of Systems: All systems reviewed & are unremarkable except as noted in HPI and below Constitutional: Constitutional: Denies body ache(s), Denies chills, Denies excessive sweating, Denies fatigue, Denies fever(s), Denies headache(s), Denies lethargy, Denies malaise, Denies weakness and Denies weight loss Eyes: Eyes: Denies blurry vision, Denies change in vision and Denies loss of vision ENT: Denies dizziness, Denies ear discharge, Denies headache(s), Denies lip swelling, Denies epistaxis, Denies nasal congestion, Denies neck pain, Denies throat swelling and Denies tongue swelling Cardiovascular: Cardiovascular: Denies diaphoresis, Denies rapid heart rate, Denies edema, Denies irregular heart rhythm, Denies lightheadedness, Denies palpitations, Denies dyspnea and Denies dyspnea on exertion Respiratory: Respiratory: Denies chest congestion, Denies cough, Denies hemoptysis, Denies dyspnea and Denies dyspnea on exertion Gastrointestinal: Gastrointestinal: Denies abdominal pain, Denies melena, Denies hematochezia, Denies diarrhea, Denies nausea, Denies vomiting and Denies hematemesis Musculoskeletal: Musculoskeletal: Denies abnormal gait, Denies deformity, Denies joint swelling, Denies limited range of motion, Denies neck pain and Denies numbness Neurologic: Denies Abnormal speech present, Denies abnormal gait, Denies confusion, Denies dizziness, Denies headache(s), Denies focal weakness, Denies loss of vision, Denies numbness, Denies Other visual disturbances, Denies Sensory deficit (Neuro) and Denies weakness Psychiatric: Psychiatric: Denies confusion, Denies depression, Denies auditory hallucinations, Denies homicidal ideation and Denies suicidal ideation Endocrine: Endocrine: Denies cold intolerance, Denies excessive sweating, Denies fatigue, Denies heat intolerance and Denies palpitations Hematologic/Lymphatic: Hematologic/Lymphatic: Denies easy bleeding and Denies easy bruising Allergic/Immunologic: Allergic/Immunologic: Denies lip swelling, Denies throat swelling and Denies tongue swelling PMFSH Past Medical History Medical History (Updated 10/21/21 @ 00:29 by Dinesh Louis MD) Healthy adult Surgical History Surgical History H/O section Social History Social History Smoking status: Never smoker Alcohol intake: never Substance use: never Gender identity (if verbalized by the patient): Female Comments Past medical history: None Family history: Negative for coronary artery disease, [place] Exam Const: General: cooperative, healthy appearing, comfortable, no acute distress, well developed, alert and awake; No confusion Orientation/consciousness: oriented to person, oriented to place, oriented to time, patient oriented x3 and No confusion Limitations: no limitations HENMT: Head: normal to inspection, normocephalic and atraumatic Ears: hearing grossly normal bilaterally, TM normal on the right and TM normal on the left General nose exam: Normal external nose present, Normal nares present and No nasal discharge present Face and sinus: normal facial exam Mouth: Yes Normal oral and palatal mucosa present
[2021-10-20 22:52] LABS: D Dimer 0.76 ug/mL (<0.48)
[2021-10-20 22:53] LABS: Troponin I < 0.012 ng/mL (0.000-0.034)
[2021-10-20 23:00] VITALS: BP 102/64; PULSE 89; RESP 19; O2SAT 99
[2021-10-20 23:15] VITALS: BP 114/73; PULSE 99; RESP 15; O2SAT 98
[2021-10-20 23:16] VITALS: PULSE 102; PULSE 107; RESP 25; O2SAT 99
[2021-10-20 23:28] LABS: Add Urine Microscopic? YES; Appearance Urine Clear (Clear); Bilirubin Urine Negative (Negative); Blood Urine Negative (Negative); Color Urine Yellow (Yellow); Glucose Urine UA Negative (Negative); Ketones Urine Negative (Negative); Leukocyte Esterase Ur Trace LEU/UL (Negative); Mucus Urine Rare /lpf; Nitrate Urine Negative (Negative); Protein Urine Negative (Negative); RBC Urine 0-2 /hpf (0-2); Specific Grav Ur 1.018 (1.001-1.035); Squamous Epithelial Cell Urine Many /hpf (Few); Urobilinogen Urine Negative mg/dL (<2.0)
[2021-10-21] VITALS: BP 116/80; PULSE 93; RESP 17; O2SAT 100
[2021-10-21 00:42] VITALS: BP 109/67; PULSE 99; RESP 20; O2SAT 99
== END 2021-10-21 00:45 | disposition home or self-care (01) ==
PROVIDERS: Family Medicine; Emergency Provider Emergency Medicine; PCP Nurse Practitioner
DX: R07.89 Other chest pain (principal); R30.0 Dysuria; R00.0 Tachycardia, unspecified; R94.31 Abnormal electrocardiogram [ECG] [EKG]
CPT/HCPCS: 36415; 71046; 71275; 80053; 81001; 81025; 83690; 84484; 85025; 85380; 85610; 85730; 93005; 99284; Q9967

== ENCOUNTER 2022-02-14 18:30 | Emergency (ER) | payer BC, SELFPAY ==
--- NOTE | ~2022-02-14 | XR_ITS ---
EXAM: XR abdomen obstructive series HISTORY: mid abdominal pain COMPARISON: None available FINDINGS: Clear lung bases. Normal bowel gas pattern. No organomegaly. No abnormal abdominal calcifi cation. Regional bones and soft tissues normal for age. IMPRESSION: No obstruction or ileus. Reviewed, dictated and finalized at location K. IMPRESSION: No obstruction or ileus.
[2022-02-14 18:32] VITALS: BP 130/81; PULSE 92; RESP 18; TEMP 36; O2SAT 100
--- NOTE | 2022-02-14 18:35 | ECG_ITS ---
Measurements Intervals [place] Rate: 67 P: 60 [place]: 122 QRS: 55 QRSD: 70 T: 41 QT: 373 QTc: 396 Interpretive Statements SINUS RHYTHM WITH MARKED SINUS ARRHYTHMIA NONSPECIFIC T-WAVE ABNORMALITY Electronically Signed On 02-15-2022 11:08:47 CDT by Carson Guzman M.D.
[2022-02-14 18:47] LABS: Basophils Percent Auto 0.6 % (0.2-1.2); Eosinophils Percent Auto 0.4 % (0-4.4); Hematocrit 36.5 % (37.0-47.0); Immature Granulocyte Absolute 0.01 K/mm3 (0.00-0.031); Immature Granulocyte Percent A 0.2 % (0-0.5); Lymphocytes Absolute Auto 2.59 K/mm3 (0.9-3.2); Lymphocytes Percent Auto 47.9 % (18.3-44.2); Mean Corpuscular HGB Conc 32.9 g/dl (32-36); Mean Corpuscular Hemoglobin 30.4 pg (26-34); Mean Corpuscular Volume 92.4 fl (80-100); Mean Platelet Volume 9.1 fl (7.4-10.4); Monocytes Absolute Auto 0.3 K/mm3 (0.1-0.6); Neutrophils Absolute Auto 2.5 K/mm3 (1.3-6.7); Neutrophils Percent Auto 45.9 % (45.5-73.1); Platelet Count Result 253 k/mm3 (150-375); Red Blood Count 3.95 M/mm3 (4.2-5.4); Red Cell Distribution Width 13.1 % (11.5-14.5); White Blood Count 5.4 K/mm3 (4.5-10.0)
[2022-02-14 18:55] LABS: Alanine Aminotransferase 14 U/L (4-35); Albumin Level 4.4 g/dL (3.5-5.1); Alkaline Phosphatase 98 U/L (38-126); Anion Gap 8 mmol/L (8-16); Aspartate Amino Transferase 24 U/L (14-36); Bilirubin,Total 0.2 mg/dL (0.2-1.3); Blood Urea Nitrogen 12 mg/dL (7-17); Calcium 9.3 mg/dL (8.4-10.2); Carbon Dioxide 24 mmol/L (22-30); Chloride 108 mmol/L (98-107); Estimated CRCL calculation 95 ml/min; Estimated Glomerular Filt Rate > 60; Glucose 100 mg/dL (65-110); Lipase 91 U/L (23-300); Sodium 140 mmol/L (137-145)
[2022-02-14 18:57] LABS: Add Urine Microscopic? YES; Appearance Urine Clear (Clear); Bilirubin Urine Negative (Negative); Blood Urine Negative (Negative); Color Urine Yellow (Yellow); Glucose Urine UA Negative (Negative); Ketones Urine Negative (Negative); Leukocyte Esterase Ur 1+ LEU/UL (Negative); Nitrate Urine Negative (Negative); Protein Urine Negative (Negative); Urobilinogen Urine 0.2 mg/dL (<2.0)
[2022-02-14 19:15] LABS: Mucus Urine Rare /lpf; Squamous Epithelial Cell Urine Few /hpf (Few)
--- NOTE | 2022-02-14 19:50 | ED.ABDPAIN ---
HPI - Abdominal Pain General Chief Complaint: Abdominal Pain Stated Complaint: Abd pain, CP Time Seen by Provider: 02/14/22 19:30 Source: patient and RN notes reviewed Mode of arrival: ambulatory Limitations: no limitations History of Present Illness HPI narrative: 31-year-old female presented to the emergency department for evaluation of mid abdominal pain which she states started at approximately 5 PM today. Patient states that the pain did radiate into her chest. Patient also states that the pain has significantly improved. Pain started just after eating lunch. Patient denies any prior history of gallbladder disease or GERD. Patient does have a prior history of section. Patient denies any cardiac history. Related Data Allergies Allergy/AdvReac Type Severity Reaction Status Date / Time sumatriptan [From Imitrex] AdvReac Other Verified 10/20/21 22:23 Review of Systems Review of Systems: CONSTITUTIONAL: Denies fever, chills, or sweats. ENT: Denies rhinorrhea, congestion, sore throat, or otalgia. CARDIOVASCULAR: Denies chest pain, palpitations, or edema. RESPIRATORY: Denies cough or dyspnea. GASTROINTESTINAL: Denies abdominal pain, nausea, vomiting, or diarrhea. GENITOURINARY: Denies dysuria or hematuria. SKIN: Denies rash or itching. MUSCULOSKELETAL: Denies back pain, joint pain, or myalgia. NEUROLOGIC: Denies headache, numbness, or weakness. All systems reviewed & are unremarkable except as noted in HPI and below PMFSH Past Medical History Medical History (Updated 02/15/22 @ 00:44 by Nixon Zee MD) Healthy adult Surgical History Surgical History H/O section Social History Social History Smoking status: Never smoker Alcohol intake: never Substance use: never Gender identity (if verbalized by the patient): Female Exam Narrative: APPEARANCE: Well appearing, no pain, no distress, well-nourished. HEAD: normocephalic, atraumatic. EYES: PERRLA/EOMI, conjunctivae clear. NOSE: Normal no drainage NECK: Supple. No adenopathy, no masses. RESPIRATORY: Airway patent, respirations nonlabored. Clear to auscultation bilaterally, no rales, rhonchi, wheezing. CARDIOVASCULAR: Regular rate and rhythm without murmurs rubs or gallops. ABDOMINAL: Soft, nontender, nondistended, normal bowel sounds MUSCULOSKELETAL: Moves all extremities. Strength/ROM intact, No edema, No calf tenderness. NEURO: Alert. Cranial nerves II through XII intact. Grossly intact SKIN: Warm, dry. Normal Color Course Course Emergency Course: Labs reviewed. No significant abnormalities. No leukocytosis. Patient had a benign abdomen on exam. Abdominal x-ray showed no evidence of ileus or obstruction. Patient denies any urinary symptoms. Urine culture is pending. Patient was updated on the results of her work-up including the labs and imaging. All questions concerns were addressed. Vital Signs Vital signs: Vital Signs Temperature 96.8 F L 02/14/22 18:32 Pulse Rate 92 02/14/22 18:32 Respiratory Rate 18 02/14/22 18:32 Blood Pressure 130/81 02/14/22 18:32 Pulse Oximetry 100 02/14/22 18:32 Temperature 96.8 F L 02/14/22 18:32 Pulse Rate 71 02/14/22 21:14 Respiratory Rate 16 02/14/22 21:14 Blood Pressure 130/81 02/14/22 18:32 Pulse Oximetry 100 02/14/22 21:14 MDM - Abdominal Pain Differential Diagnosis Differential diagnosis: Likely abdominal pain Lab Data Attestation: I reviewed the patient's lab results. Result diagrams: 02/14/22 18:38 02/14/22 18:38 Labs: Lab Results 02/14/22 02/14/22 02/14/22 Range/Units 18:38 18:38 18:45 WBC 5.4 (4.5-10.0) K/mm3 RBC 3.95 L (4.2-5.4) M/mm3 Hgb 12.0 (12.0-15.0) g/dL Hct 36.5 L (37.0-47.0) % MCV 92.4 (80-100) fl MCH 30.4 (26-34) pg MCHC 32.9 (32-36) g/dl RDW 13.
[2022-02-14] MEDS: BELLADONNA ALK/PHENOB ELIX 10 ML, MAG HYDROX/ALUMINUM HYD/SIMETH 30 ML, LIDOCAINE HCL 2... PO (20:46)
[2022-02-14 21:14] VITALS: PULSE 71; RESP 16; O2SAT 100
== END 2022-02-14 21:14 | disposition home or self-care (01) ==
PROVIDERS: Nurse Practitioner Family; Emergency Provider Emergency Medicine; PCP Nurse Practitioner
DX: R10.9 Unspecified abdominal pain (principal); R94.31 Abnormal electrocardiogram [ECG] [EKG]
CPT/HCPCS: 36415; 74019; 80053; 81001; 83690; 85025; 87086; 87088; 93005; 99283; A9270

== ENCOUNTER 2022-02-17 21:25 | Emergency (ER) | payer BC, SELFPAY ==
--- NOTE | ~2022-02-17 | XR_ITS ---
EXAMINATION: XR chest 2V DATE: 02/17/2022 22:44 INDICATION: Left breast pain TECHNIQUE: PA and lateral views of the chest are obtained. COMPARISON: 10/20/2021 FINDINGS: The lungs are free of acute opacities. There is no pleural effusion or pneumothorax. The ca rdiomediastinal silhouette is normal. The visualized bones and soft tissues are unremarkable. IMPRESSION: 1. No acute cardiopulmonary abnormality. Reviewed, dictated and finalized at location F.
[2022-02-17 21:30] VITALS: BP 126/79; PULSE 104; RESP 18; TEMP 36.9; O2SAT 100
--- NOTE | 2022-02-17 22:32 | ECG_ITS ---
Measurements Intervals [place] Rate: 85 P: 67 [place]: 123 QRS: 49 QRSD: 75 T: 26 QT: 353 QTc: 420 Interpretive Statements SINUS RHYTHM WITH SINUS ARRHYTHMIA OTHERWISE UNREMARKABLE ECG COMPARED TO ECG 02/14/2022 18:39:15 NO SIGNIFICANT CHANGES Electronically Signed On 02-18-2022 15:06:51 CDT by Ilia Santana M.D.
[2022-02-17 23:09] LABS: Basophils Percent Auto 0.5 % (0.2-1.2); Eosinophils Absolute Auto 0.1 K/mm3 (0-0.3); Eosinophils Percent Auto 1.3 % (0-4.4); Hemoglobin 11.3 g/dL (12.0-15.0); Immature Granulocyte Absolute 0.01 K/mm3 (0.00-0.031); Immature Granulocyte Percent A 0.3 % (0-0.5); Lymphocytes Absolute Auto 1.98 K/mm3 (0.9-3.2); Lymphocytes Percent Auto 51.7 % (18.3-44.2); Mean Corpuscular HGB Conc 32.3 g/dl (32-36); Mean Corpuscular Hemoglobin 29.6 pg (26-34); Mean Corpuscular Volume 91.6 fl (80-100); Monocytes Absolute Auto 0.2 K/mm3 (0.1-0.6); Neutrophils Absolute Auto 1.6 K/mm3 (1.3-6.7); Neutrophils Percent Auto 41.2 % (45.5-73.1); Platelet Count Result 253 k/mm3 (150-375); Red Blood Count 3.82 M/mm3 (4.2-5.4); Red Cell Distribution Width 13.3 % (11.5-14.5); White Blood Count 3.8 K/mm3 (4.5-10.0)
[2022-02-17 23:16] VITALS: BP 122/79; PULSE 104; PULSE 90; RESP 14; O2SAT 97
[2022-02-17 23:17] VITALS: O2SAT 98
[2022-02-17 23:18] VITALS: BP 122/79; PULSE 84; RESP 16; O2SAT 100
[2022-02-17 23:27] LABS: Alanine Aminotransferase 15 U/L (4-35); Albumin Level 4.8 g/dL (3.5-5.1); Alkaline Phosphatase 84 U/L (38-126); Anion Gap 9 mmol/L (8-16); Aspartate Amino Transferase 33 U/L (14-36); Bilirubin,Total 0.1 mg/dL (0.2-1.3); Blood Urea Nitrogen 8 mg/dL (7-17); Calcium 9.2 mg/dL (8.4-10.2); Carbon Dioxide 23 mmol/L (22-30); Chloride 109 mmol/L (98-107); Estimated CRCL calculation 106 ml/min; Estimated Glomerular Filt Rate > 60; Glucose 106 mg/dL (65-110); Lipase 78 U/L (23-300); Potassium 3.7 mmol/L (3.4-5.0); Sodium 141 mmol/L (137-145)
[2022-02-17 23:29] LABS: INR 1.2; Partial Thromboplastin Time 25.6 SECONDS (22.3-36.8); Prothrombin Time 14.5 Seconds (11.1-14.7)
[2022-02-17 23:35] LABS: Troponin I < 0.012 ng/mL (0.000-0.034)
--- NOTE | 2022-02-17 23:37 | ED.CHESTPAIN ---
HPI - Chest Pain General Chief Complaint: Chest Pain Stated Complaint: CP Time Seen by Provider: 02/17/22 23:36 Source: patient Mode of arrival: ambulatory Limitations: no limitations History of Present Illness HPI narrative: Patient is a 31-year-old female complaining of chest pain, left chest wall, sharp, 6 out of 10, nonradiating accompanied by shortness of breath that started prior to arrival. Patient denies any abdominal pain, nausea, vomiting, diaphoresis, fever or chills. Related Data Allergies Allergy/AdvReac Type Severity Reaction Status Date / Time sumatriptan [From Imitrex] AdvReac Other Verified 02/17/22 23:18 Review of Systems Review of Systems: All systems reviewed & are unremarkable except as noted in HPI and below Constitutional: Constitutional: Denies body ache(s), Denies chills, Denies excessive sweating, Denies fatigue, Denies fever(s), Denies headache(s), Denies lethargy, Denies malaise, Denies weakness and Denies weight loss Eyes: Eyes: Denies blurry vision, Denies change in vision and Denies loss of vision ENT: Denies dizziness, Denies ear discharge, Denies headache(s), Denies lip swelling, Denies epistaxis, Denies nasal congestion, Denies neck pain, Denies throat swelling and Denies tongue swelling Cardiovascular: Cardiovascular: Denies diaphoresis, Denies rapid heart rate, Denies edema, Denies irregular heart rhythm, Denies lightheadedness, Denies palpitations, Denies dyspnea and Denies dyspnea on exertion Respiratory: Respiratory: Denies chest congestion, Denies cough, Denies hemoptysis and Denies dyspnea on exertion Gastrointestinal: Gastrointestinal: Denies abdominal pain, Denies melena, Denies hematochezia, Denies diarrhea, Denies nausea, Denies vomiting and Denies hematemesis Musculoskeletal: Musculoskeletal: Denies abnormal gait, Denies deformity, Denies joint swelling, Denies limited range of motion, Denies neck pain and Denies numbness Neurologic: Denies Abnormal speech present, Denies abnormal gait, Denies confusion, Denies dizziness, Denies headache(s), Denies focal weakness, Denies loss of vision, Denies numbness, Denies Other visual disturbances, Denies Sensory deficit (Neuro) and Denies weakness Psychiatric: Psychiatric: Denies confusion, Denies depression, Denies auditory hallucinations, Denies homicidal ideation and Denies suicidal ideation Endocrine: Endocrine: Denies cold intolerance, Denies excessive sweating, Denies fatigue, Denies heat intolerance and Denies palpitations Hematologic/Lymphatic: Hematologic/Lymphatic: Denies easy bleeding and Denies easy bruising Allergic/Immunologic: Allergic/Immunologic: Denies lip swelling, Denies throat swelling and Denies tongue swelling PMFSH Past Medical History Medical History (Updated 02/17/22 @ 23:41 by Dinesh Louis MD) Healthy adult Surgical History Surgical History H/O section Social History Social History Smoking status: Never smoker Alcohol intake: never Substance use: never Gender identity (if verbalized by the patient): Female Exam Const: General: cooperative, healthy appearing, comfortable, no acute distress, well developed, alert and awake; No confusion Orientation/consciousness: oriented to person, oriented to place, oriented to time, patient oriented x3 and No confusion Limitations: no limitations HENMT: Head: normal to inspection, normocephalic and atraumatic Ears: hearing grossly normal bilaterally, TM normal on the right and TM normal on the left General nose exam: Normal external nose present, Normal nares present and No nasal discharge present Face and sinus: normal facial exam Mouth: Yes Normal oral and palatal mucosa present, Yes lip normal, Yes tongue normal and Yes oropharynx normal Throat: posterior oropharynx normal, tonsils normal and uvula midline Eyes: General: appearance
[2022-02-18 00:09] VITALS: PULSE 81; RESP 12; O2SAT 100
[2022-02-18 00:19] VITALS: PULSE 80; RESP 13; O2SAT 99
[2022-02-18 00:30] VITALS: PULSE 79; RESP 16; O2SAT 100
[2022-02-18 00:31] VITALS: BP 124/79; PULSE 95; RESP 16; O2SAT 100
[2022-02-18] MEDS: KETOROLAC 30 MG/ML VIAL (*BKC) IM (00:50)
== END 2022-02-18 00:55 | disposition home or self-care (01) ==
PROVIDERS: Emergency Provider Emergency Medicine; PCP Nurse Practitioner
DX: R07.89 Other chest pain (principal)
CPT/HCPCS: 36415; 71046; 80053; 83690; 84484; 85025; 85610; 85730; 93005; 96372; 99284; J1885

== ENCOUNTER → 2022-07-27 12:45 | Outpatient (CLI) | payer BC, SELFPAY ==
--- NOTE | ~2022-07-27 | US_ITS ---
EXAMINATION: US OB <= 14 weeks fetus DATE: 07/27/2022 13:06 INDICATION: Pelvic pain TECHNIQUE: Real-time pelvic ultrasound utilizing transabdominal probe was performed. The lore bhardwaj radiologist was not present for the study. COMPARISON: None. FINDINGS: The uterus measures 15.0 x 6.1 x 7.8 cm. There is an intrauterine gestational sac. A yolk sac and fe luther pole are identified. The crown rump length measures 3.0, which correlates with an estimated gesta tional age of 10 weeks and 0 days. heart motion is identified measuring 157 beats per minute (b pm) by M-mode Doppler. The right ovary measures 3.7 x 2.6 x 3.3 cm. 1.8 cm anechoic likely corpus luteum cyst in the right o vary. The left ovary measures 2.8 x 2.1 x 1.8 cm. Vascular flow identified in both ovaries on color D oppler. There is no free fluid in the pelvis. IMPRESSION: 1. Single living fetus with heart rate of 157 bpm. 2. Gestational age by ultrasound of 10 weeks 0 day(s) +/- 6 day(s) with ultrasound estimated date of delivery (CHAYA) of 02/22/2023. Reviewed, dictated and finalized at location A. IMPRESSION: 1. Single living fetus with heart rate of 157 bpm. 2. Gestational age by ultrasound of 10 weeks 0 day(s) +/- 6 day(s) with ultras ound estimated date of delivery (CHAYA) of 02/22/2023.
== END ==
PROVIDERS: PCP Obstetrics & Gynecology Gynecology; Visit Provider Advanced Practice Midwife
DX: O36.80X0 Pregnancy with inconclusive fetal viability, not applicable or unspecified (principal); Z3A.10 10 weeks gestation of pregnancy
CPT/HCPCS: 76801

== ENCOUNTER → 2022-09-27 16:01 | Outpatient (CLI) | payer BC, SELFPAY ==
--- NOTE | ~2022-09-27 | US_ITS ---
EXAMINATION: US OB /maternal detail DATE: 09/27/2022 16:46 INDICATION: survey TECHNIQUE: Multiple obstetric sonographic images performed. FINDINGS: Comparison to ultrasound dated 07/27/2022 There is a single living fetus in variable presentation. The placenta is fundal without placenta pre via. Placental margin to cervix measures 6.1 cm. Amniotic fluid volume is subjectively normal. Cervic al length is 3.3 cm. cardiac activity and movement is noted with a heart rate of 153 beats per minute. The following anatomy was identified as normal: 4 chamber heart 3 vessel cord cord insertion kidneys urinary bladder stomach spine diaphragm ventricles cisterna magna cerebellum The following biometric data were obtained: BPD: 43mm corresponds to gestational age 18 weeks 6 days. Head circumference: 154 mm corresponds to gestational age 18 weeks 2 days. Abdominal circumference: 128 mm corresponds to gestational age 18 weeks 2 days. Femur length: 27 mm corresponds to gestational age 18 weeks 2 days. Head circumference to abdominal circumference ratio: 1.21 (normal range for expected gestational age is 1.08-1.27). Estimated weight: 234 grams +/- 35 grams using Hadlock method. IMPRESSION: 1: Single living intrauterine with an estimated gestational age of 18weeks 6days by initial ultrasound measurements, with an EDC of 02/22/2023 in variable presentation. 2. Normal survey. Reviewed, dictated and finalized at location A. LAYER SUPERVISOR IMPRESSION: 1: Single living intrauterine with an estimated gestational age of 18 weeks 6days by initial ultrasound measurements, with an EDC of 02/22/2023 in víctor iable presentation. 2. Normal survey.
== END ==
PROVIDERS: PCP Nurse Practitioner; Visit Provider Obstetrics & Gynecology Gynecology
DX: Z36.9 Encounter for antenatal screening, unspecified (principal); Z3A.18 18 weeks gestation of pregnancy
CPT/HCPCS: 76805

== ENCOUNTER 2022-10-22 12:46 | Emergency (ER) | payer BC, SELFPAY ==
[2022-10-22 13:02] VITALS: BP 126/71; PULSE 105; RESP 16; TEMP 36.8; O2SAT 100
--- NOTE | 2022-10-22 13:50 | ED.URI ---
HPI - URI/Sore Throat General Chief Complaint: Upper Respiratory Infection Stated Complaint: Cough Time Seen by Provider: 10/22/22 13:50 Source: patient, RN notes reviewed and old records reviewed Mode of arrival: ambulatory Limitations: no limitations History of Present Illness HPI Narrative: 32-year-old female presents to the [facility] with complaints of 3 weeks of cough, sinus congestion and pain. Patient states she is not taking much of anything because she is 5 months . Has not contacted her OB. Related Data Home Medications Medication Instructions Recorded Confirmed 10/22/22 Allergies Allergy/AdvReac Type Severity Reaction Status Date / Time sumatriptan [From Imitrex] AdvReac Other Verified 10/22/22 14:07 Review of Systems Review of Systems: All systems reviewed & are unremarkable except as noted in HPI and below Constitutional: Constitutional: Reports no additional constitutional complaints Eyes: Eyes: Reports no additional eye complaints ENT: Reports as per HPI and Reports nasal congestion Cardiovascular: Cardiovascular: Reports no additional cardiovascular complaints, Denies chest pain and Denies dyspnea Respiratory: Respiratory: Reports as per HPI, Denies chest congestion, Reports cough, Denies dyspnea and Denies wheezing Gastrointestinal: Gastrointestinal: Reports no additional gastrointestinal complaints, Denies abdominal pain, Denies nausea and Denies vomiting Musculoskeletal: Musculoskeletal: Reports no additional musculoskeletal complaints Integumentary/Breasts: Skin/Breast: Reports system reviewed and no additional complaints, except as docu Neurologic: Reports system reviewed and no additional complaints, except as documented Psychiatric: Psychiatric: Reports no additional psychiatric complaints Allergic/Immunologic: Allergic/Immunologic: Reports no additional allergic/immunologic complaints [facility] Past Medical History Medical History (Updated 10/22/22 @ 13:55 by Jovana Del Valle APRN) Healthy adult Surgical History Surgical History H/O section Social History Social History Smoking status: Never smoker Alcohol intake: never Substance use: never Gender identity (if verbalized by the patient): Female Comments At the time of my signature, I reviewed and agree with the nursing past medical, surgical, social, and family history. There is no relevant family history pertinent to the patient complaint. Exam Const: General: cooperative, healthy appearing, comfortable, no acute distress, well developed, alert and well nourished Nutritional Appearance: well nourished Orientation/consciousness: patient oriented x3 Limitations: no limitations HENMT: Head: normal to inspection Ears: hearing grossly normal bilaterally and external ears normal Face/Nose/Sinus: Normal external nose present, Normal nares present, Normal nasal mucous membranes and turbinates present and normal facial exam Face and sinus: normal facial exam Mouth: Yes Normal oral and palatal mucosa present, Yes lip normal and Yes moist mucous membranes Throat: posterior oropharynx normal, uvula midline and postnasal drainage Eyes: General: appearance normal, both eyes and all related structures Alignment and Position: alignment normal Periorbital: periorbital findings normal Conjunctivae: conjunctivae normal Pupils: Equal, round and reactive pupils present EOM: EOMs intact bilaterally Neck: Neck: normal visual inspection, full ROM, no lymphadenopathy and no meningeal signs Chest: Chest palpation & inspection: normal inspection of the chest Resp: Effort & Inspection: normal respiratory effort and able to speak in complete sentences Auscultation: clear to auscultation bilaterally, no crackles, no rales, no rhonchi and no wheezes Cardio: Rate: regular rate Rhythm: regular rhyth
== END 2022-10-22 14:09 | disposition home or self-care (01) ==
PROVIDERS: Emergency Provider Nurse Practitioner; PCP Nurse Practitioner
DX: J32.9 Chronic sinusitis, unspecified (principal); J40 Bronchitis, not specified as acute or chronic; R09.82 Postnasal drip
CPT/HCPCS: 99213; G0463

== ENCOUNTER 2022-11-07 15:14 | Outpatient (CLI) | payer BC, SELFPAY ==
--- NOTE | ~2022-11-07 | US_ITS ---
EXAMINATION: US OB follow up DATE: 11/07/2022 15:42 INDICATION: Estimated size greater than expected for estimated gestational age during second tr imester of . TECHNIQUE: Real-time ultrasound of the pelvis was performed. The interpreting radiologist was not pre sent for the study. COMPARISON: 09/27/2022 FINDINGS: There is a single living fetus in variable presentation. The placenta is posterior fundal and not lo w-lying. heart rate is 139 beats per minute (bpm). The amniotic fluid index is 19.3 cm, which is normal (5th%-95%: 9.8-21.9 cm at 24 weeks estimated gestational age). The following biometric data were obtained: BPD: 6.1 cm -> 24 weeks 6 days Head circumference: 22.2 cm -> 24 weeks 2 days Abdominal circumference: 20.7 cm -> 25 weeks 2 days Femur length: 4.4 cm -> 24 weeks 3 days These measurements are concordant. Head circumference to abdominal circumference ratio: 1.07 (normal range 1.04-1.22). Estimated weight: 742 g (+/-) 111 g or 1 lbs. 10 oz. (+/-) 4 oz. IMPRESSION: 1. Single living fetus in stable1 presentation with heart rate of 139 bpm. 2. Normal amniotic fluid index of 19.3 cm. 3. Estimated weight is 46th percentile by Hadlock criteria when 02/22/23 is used as the estimate d date of delivery (CHAYA). Please correlate with clinical information or earlier ultrasounds for most accurate CHAYA. Reviewed, dictated and finalized at location A. BAKER IMPRESSION: 1. Single living fetus in stable1 presentation with heart rate of 139 bpm . 2. Normal amniotic fluid index of 19.3 cm. 3. Estimated weight is 46th percentile by Hadlock criteria when 02/22/23 i s used as the estimated date of delivery (CHAYA). Please correlate with clinical information or earlier ultrasounds for most accurate CHAYA.
== END 2022-11-07 15:15 ==
PROVIDERS: PCP Nurse Practitioner; Visit Provider Obstetrics & Gynecology Gynecology
DX: O36.63X0 Maternal care for excessive fetal growth, third trimester, not applicable or unspecified (principal); Z3A.00 Weeks of gestation of pregnancy not specified
CPT/HCPCS: 76816

== ENCOUNTER 2022-12-22 10:44 | Outpatient (CLI) | payer BC, SELFPAY ==
--- NOTE | ~2022-12-22 | US_ITS ---
EXAMINATION: US OB follow up DATE: 12/22/2022 11:34 INDICATION: Estimated size greater than expected for estimated gestational age [facility] TECHNIQUE: Real-time ultrasound of the pelvis was performed. The interpreting radiologist was not pre sent for the study. COMPARISON: None. FINDINGS: There is a single living fetus in transverse lie presentation. The placenta is fundal. heart r ate is 153 beats per minute (bpm). The amniotic fluid index is 14.9 cm, which is normal (5th%-95%: 8 .8-83.8 cm at 31 weeks estimated gestational age). Normal cervical length of approximately 6 cm . The following biometric data were obtained: BPD: 7.9 cm -> 31 weeks 4 days Head circumference: 28.6 cm -> 31 weeks 3 days Abdominal circumference: 27.0 cm -> 31 weeks 1 days Femur length: 6.0 cm -> 31 weeks 2 days These measurements are concordant. Head circumference to abdominal circumference ratio: 1.06 (normal range 0.96-1.16). Estimated weight: 1729 g (+/-) 259 g or 3 lbs. 13 oz. (+/-) 9 oz. IMPRESSION: 1. Single living fetus in transverse lie with heart rate of 153 bpm. 2. Normal amniotic fluid index of 14.9 cm. 3. Estimated weight is 41st percentile by Hadlock criteria when 02/22/2023 is used as the estima teressa date of delivery (CHAYA). Please correlate with clinical information or earlier ultrasounds for mos t accurate CHAYA. Reviewed, dictated and finalized at location A. [facility] [employer] IMPRESSION: 1. Single living fetus in transverse lie with heart rate of 153 bpm. 2. Normal amniotic fluid index of 14.9 cm. 3. Estimated weight is 41st percentile by Hadlock criteria when 02/22/2023 is used as the estimated date of delivery (CHAYA). Please correlate with clinica l information or earlier ultrasounds for most accurate CHAYA.
== END 2022-12-22 10:45 | disposition home or self-care (01) ==
PROVIDERS: PCP Nurse Practitioner; Visit Provider Advanced Practice Midwife
DX: O36.63X0 Maternal care for excessive fetal growth, third trimester, not applicable or unspecified (principal); Z3A.00 Weeks of gestation of pregnancy not specified
CPT/HCPCS: 76816

== ENCOUNTER 2023-02-15 10:45 | Outpatient (CLI) | payer BC, SELFPAY ==
[2023-02-15 11:15] LABS: Basophils Percent Auto 0.6 % (0.2-1.2); Eosinophils Percent Auto 0.4 % (0-4.4); Hematocrit 33.3 % (37.0-47.0); Hemoglobin 11.2 g/dL (12.0-15.0); Immature Granulocyte Absolute 0.04 K/mm3 (0.00-0.031); Immature Granulocyte Percent A 0.8 % (0-0.5); Lymphocytes Absolute Auto 1.56 K/mm3 (0.9-3.2); Lymphocytes Percent Auto 31.6 % (18.3-44.2); Mean Corpuscular HGB Conc 33.6 g/dl (32-36); Mean Corpuscular Volume 89.3 fl (80-100); Mean Platelet Volume 9.7 fl (7.4-10.4); Monocytes Absolute Auto 0.3 K/mm3 (0.1-0.6); Monocytes Percent Auto 6.7 % (2.6-8.5); Neutrophils Percent Auto 59.9 % (45.5-73.1); Platelet Count Result 176 k/mm3 (150-375); Red Blood Count 3.73 M/mm3 (4.2-5.4); Red Cell Distribution Width 14.5 % (11.5-14.5); White Blood Count 4.9 K/mm3 (4.5-10.0)
== END 2023-02-15 10:46 | disposition home or self-care (01) ==
LOC: ANHLAB 10:47
PROVIDERS: Visit Provider Obstetrics & Gynecology Gynecology
DX: Z34.93 Encounter for supervision of normal pregnancy, unspecified, third trimester (principal); Z3A.00 Weeks of gestation of pregnancy not specified
CPT/HCPCS: 36415; 85025; 86592; 86850; 86900; 86901

== ENCOUNTER 2023-02-16 05:34 | Inpatient (IN) | payer BC, SELFPAY ==
[2023-02-16] VITALS (59 sets, daily range): BP systolic 99–124; BP diastolic 66–93; PULSE 54–96; RESP 16–20; TEMP 36.2–36.6; O2SAT 98–100; BMI 31.1
[2023-02-16 06:09] LABS: Basophils Percent Auto 0.2 % (0.2-1.2); Eosinophils Percent Auto 0.4 % (0-4.4); Hematocrit 34.7 % (37.0-47.0); Hemoglobin 11.7 g/dL (12.0-15.0); Immature Granulocyte Absolute 0.02 K/mm3 (0.00-0.031); Immature Granulocyte Percent A 0.4 % (0-0.5); Lymphocytes Absolute Auto 1.75 K/mm3 (0.9-3.2); Lymphocytes Percent Auto 36.1 % (18.3-44.2); Mean Corpuscular HGB Conc 33.7 g/dl (32-36); Mean Corpuscular Hemoglobin 30.5 pg (26-34); Mean Corpuscular Volume 90.6 fl (80-100); Mean Platelet Volume 9.8 fl (7.4-10.4); Monocytes Absolute Auto 0.3 K/mm3 (0.1-0.6); Monocytes Percent Auto 5.6 % (2.6-8.5); Neutrophils Absolute Auto 2.8 K/mm3 (1.3-6.7); Neutrophils Percent Auto 57.3 % (45.5-73.1); Platelet Count Result 170 k/mm3 (150-375); Red Blood Count 3.83 M/mm3 (4.2-5.4); Red Cell Distribution Width 14.4 % (11.5-14.5); White Blood Count 4.9 K/mm3 (4.5-10.0)
[2023-02-16] MEDS: LACTATED RINGERS 1,000 ML 125 ML IV CONT ×2 (06:31→06:58)
--- NOTE | 2023-02-16 06:59 | WPDANESEPPF ---
Anes - Initial Pre Proc Eval Procedure: Operation Date: 02/16/23 07:30 Proposed Procedures p Repeat Section - Mariela Worthington MD Date/Time: 02/16/23 06:59 Surgeon: Mariela Worthington MD Pre Op Diagnosis: C/S Patient Data Age: 32 Gender: F Height: 1.68 m Weight: 87.6 kg Last Vital Signs Temp 36.2 C L 02/16/23 05:59 Pulse 88 02/16/23 06:46 Resp 18 02/16/23 05:59 BP 114/77 02/16/23 06:46 O2 Del Method Room Air 02/16/23 06:08 Allergies Allergy/AdvReac Type Severity Reaction Status Date / Time sumatriptan [From Imitrex] AdvReac Other Verified 02/03/23 11:42 Home Medications Medication Instructions Recorded Confirmed Type 10/22/22 History amoxicillin 875 mg tablet 875 mg PO Q12H #20 tabs 10/22/22 02/03/23 Rx Laboratory Tests 02/16/23 02/16/23 06:01 06:01 WBC 4.9 K/mm3 K/mm3 (4.5-10.0) RBC 3.83 M/mm3 L M/mm3 (4.2-5.4) Hgb 11.7 g/dL L g/dL (12.0-15.0) Hct 34.7 % L % (37.0-47.0) MCV 90.6 fl fl (80-100) MCH 30.5 pg pg (26-34) MCHC 33.7 g/dl g/dl (32-36) RDW 14.4 % % (11.5-14.5) Plt Count 170 k/mm3 k/mm3 (150-375) MPV 9.8 fl fl (7.4-10.4) Immature Gran % (Auto) 0.4 % % (0-0.5) Neut % (Auto) 57.3 % % (45.5-73.1) Lymph % (Auto) 36.1 % % (18.3-44.2) [place] % (Auto) 5.6 % % (2.6-8.5) Eos % (Auto) 0.4 % % (0-4.4) Baso % (Auto) 0.2 % % (0.2-1.2) Lymph # (Auto) 1.75 K/mm3 K/mm3 (0.9-3.2) [place] # (Auto) 0.3 K/mm3 K/mm3 (0.1-0.6) Eos # (Auto) 0.0 K/mm3 K/mm3 (0-0.3) Baso # (Auto) 0.0 K/mm3 K/mm3 (0.0-0.1) Abs Immat Gran (auto) 0.02 K/mm3 K/mm3 (0.00-0.031) Absolute Neuts (auto) 2.8 K/mm3 K/mm3 (1.3-6.7) Absolute Nucleated RBC 0.0 K/mm3 K/mm3 (0.0-0.012) Nucleated RBC % 0.0 % % (0.0-0.2) RPR Pending Patient hx anesthesia problems: none Family hx anesthesia problems: none Results Review: All pre-operative results and documents have been reviewed as part of the pre-operative evaluation. [facility] Past Medical History Medical History Healthy adult Surgical History Surgical History H/O section Family History Family History Grandparent Hypertension Congestive heart failure Mother Hypertension Social History Social History Smoking status: Never smoker Alcohol intake: never Substance use: never Lack of Transportation: No Lack of Food: Never True Current Housing: I Have Housing Concerned About Future Housing: No Difficulty Paying Gas/Electric Bills: No Difficulty Paying for Meds: No Currently Unemployed: No Education: High School Diploma/GED Difficulty w/ Childcare or Family Care: No Gender identity (if verbalized by the patient): Female Spiritual care concerns: No Anes - Eval Final PreProcedure Day of Procedure 02/16/23 06:59 Patient weight: overweight Heart: regular rate and rhythm Lungs: clear to auscultation Airway: Mallampati scale class II Neurological: alert and oriented Last oral intake: >/= 8 hours ASA classification: II Emergent: no Anesthetic plan: proceed Anesthesia type and monitoring: regional spinal and standard monitoring Results Review: All pre-operative results and documents have been reviewed as part of the pre-operative evaluation. Informed Consent: The patient's anesthetic plan and its attendant risks and benefits were discussed with the patient/family/POA. Questions were solicited and answers provided to the satisfaction of the patient/family/POA.
--- NOTE | 2023-02-16 07:01 | WPDHPUPDATE1 ---
History and Physical Update Update Date/Time: 02/16/23 07:01 History and Physical has been reviewed, including an updated exam of the patient. There are NO changes in the patient's condition. Risks, benefits, and alternatives have been discussed and questions answered. Patient agrees to proceed with procedure.
--- NOTE | 2023-02-16 07:01 | PM.IMHP ---
H&P: HPI History of Present Illness Date/Time: 02/16/23 07:01 Chief Complaint: section at 39 weeks Narrative: the patient is a 32-year-old 7 para 3034 here for repeat section. Patient declines trial of labor and wishes to proceed with repeat section. Patient's current has been uncomplicated except by anemia. labs B positive, rubella immune, RPR negative, hepatitis-B surface antigen negative, HIV negative, group B strep negative. Review of Systems Review of Systems: not repeated day of surgery; patient states no changes in status PMFSH Past Medical History Medical History (Updated 02/16/23 @ 07:07 by Mariela Worthington MD) Healthy adult Migraine (normal spontaneous vaginal delivery) x2 Surgical History Surgical History (Updated 02/16/23 @ 07:07 by Mariela Worthington MD) H/O section twins 2019 Family History Family History Grandparent Hypertension Congestive heart failure Mother Hypertension Social History Social History Smoking status: Never smoker Alcohol intake: never Substance use: never Lack of Transportation: No Lack of Food: Never True Current Housing: I Have Housing Concerned About Future Housing: No Difficulty Paying Gas/Electric Bills: No Difficulty Paying for Meds: No Currently Unemployed: No Education: High School Diploma/GED Difficulty w/ Childcare or Family Care: No Gender identity (if verbalized by the patient): Female Spiritual care concerns: No Meds Home Medications and Allergies Home Medications Medication Instructions Recorded Confirmed Type 10/22/22 History amoxicillin 875 mg tablet 875 mg PO Q12H #20 tabs 10/22/22 02/03/23 Rx Allergies Allergy/AdvReac Type Severity Reaction Status Date / Time sumatriptan [From Imitrex] AdvReac Other Verified 02/03/23 11:42 Vital Signs Vital Signs - 24 hr 02/16/23 05:59 02/16/23 06:01 02/16/23 06:16 Temperature Pulse Rate 92 96 93 Respiratory Rate Blood Pressure 108/80 109/81 114/78 Oxygen Delivery 02/16/23 06:31 02/16/23 06:46 02/16/23 06:08 Temperature Pulse Rate 93 88 Respiratory Rate Blood Pressure 115/78 114/77 Oxygen Delivery Room Air 02/16/23 05:59 Temperature 97.2 F L Pulse Rate Respiratory Rate 18 Blood Pressure Oxygen Delivery Exam Const: General: healthy appearing and alert Orientation/consciousness: patient oriented x3 Resp: Effort & Inspection: normal respiratory effort GI: GI Palp: Yes Soft to palpation, No Tenderness to palpation present (GI) and No Palpable mass present : External Female Exam: normal external appearance Speculum Exam - Vagina: normal appearance of the vagina and normal vaginal discharge Speculum Exam - Cervix: normal appearance of the cervix Bimanual exam- vagina & uterus: consistency normal Bimanual Exam- Adnexa, other: normal adnexae and No adnexal tenderness Neuro: General: patient oriented x3 H&P: Results Labs Labs: Short CBC 02/16/23 Range/Units 06:01 WBC 4.9 (4.5-10.0) K/mm3 Hgb 11.7 L (12.0-15.0) g/dL Hct 34.7 L (37.0-47.0) % Plt Count 170 (150-375) k/mm3 Assessment and Plan Assessment and plan (1) 39 weeks gestation of : Code(s): Z3A.39 - 39 weeks gestation of Status: Acute (2) H/O section: Code(s): Z98.891 - History of uterine scar from previous surgery Status: Acute Assessment and Plan: plan to proceed with repeat section (3) Anemia affecting : Code(s): O99.019 - Anemia complicating , unspecified trimester Status: Acute
[2023-02-16] MEDS: ceFAZolin 2 GM/D5W 50 ML 2 GM/50 ML BAG IVPB (08:59)
--- NOTE | 2023-02-16 10:01 | W.PM.PROC2 ---
Procedure Note - Detailed Date of Procedure 02/16/23 Pre-op Diagnosis Intrauterine at 39 weeks here for repeat Post-op Diagnosis Same Procedure Performed repeat low-transverse section Surgeon Mariela Worthington MD Anesthesia Spinal Findings female infant 8lb 5oz with 8 and 9 Apgars. Normal-appearing tubes, ovaries, and uterus. Description of Procedure The patient was taken to the operating room and placed under anesthesia in the dorsal supine position with a leftward tilt.Once anesthesia was deemed adequate , the patient was prepped and draped in usual sterile fashion. Pfannenstiel skin incision was made through her prior incision and carried to the underlying layer of fascia which was nicked in the midline. The fascial incision was extended laterally using Leon scissors. Bleeding vessels in the subcutaneous tissue were cauterized for hemostasis. The rectus muscles are densely adherent in the midline. A scalpel was used to incise the midline. The peritoneum was then tented with a Peon and entered with Metzenbaum scissors. The incision was extended with blunt traction. The bladder blade is placed and the vesicouterine peritoneum tented and entered with Metzenbaum scissors. The incision was extended laterally and the bladder flap created digitally. The lower uterine segment was incised in a transverse fashion with the scalpel and extended with blunt traction. The membranes are ruptured and clear fluid noted. The infant's head was brought into the incision and delivered while the assistant director of security applied fundal pressure. The remainder of the infant was fully delivered and the cord clamped and cut. The infant was handed to the awaiting OB nurse. The placenta is removed using manual traction after cord blood and cord gases were taken. The uterus was cleared of all clots and debris and exteriorized. The uterine incision was closed using 0 Monocryl in a running locked fashion with the same suture used to imbricate. Several additional [id number] sutures are required at the right midline for hemostasis. The bladder flap is minimally using and cauterized for hemostasis. Hemo derm was placed in the bladder flap space. the fascia was then closed using 0 Vicryl in a running fashion. Subcutaneous tissues were irrigated made hemostatic using Bovie cautery. Skin incision is closed using 4-0 Vicryl in a subcuticular fashion. Dermaflex was placed over the incision. Patient was taken to recovery in stable condition. Sponge, needle, and instrument counts are correct per the OR staff. Patient was given Ancef prior to incision. Estimated Blood Loss 310 Drains Yes ( Ramirez) Packing No Pathology None sent Complications No immediate complications Condition Stable Disposition PACU
--- NOTE | 2023-02-16 10:06 | PM.OBDSVD ---
DS: Admitting Diagnosis Discharge Date 02/18/23 Admitting Diagnosis intrauterine at 39 weeks previous section requests repeat section DS: Discharge Diagnosis Discharge Diagnosis (1) delivery delivered: Code(s): O82 - Encounter for delivery without indication Status: Acute (2) 39 weeks gestation of : Code(s): Z3A.39 - 39 weeks gestation of Status: Acute (3) H/O section: Code(s): Z98.891 - History of uterine scar from previous surgery Status: Acute OB - DS: Summary OB Procedures : Ultrasound OB Procedures Intrapartum: low cervical, transverse OB Procedures: : None Peripartum Data Delivery Method: Section Procedures: Procedures Operation Date: 02/16/23 07:30 <No data on this case meets the specified criteria> complications: none Status at Discharge Functional status at discharge: independent ambulation Overall status at discharge: patient is progressing back to baseline Time Spent with Patient Time attestation: Total time spent providing and/or coordinating discharge services: DS: Data Data Completed and Pending Labs on day of discharge: Labs from last 24 hours 02/16/23 02/16/23 06:01 06:01 WBC 4.9 RBC 3.83 L Hgb 11.7 L Hct 34.7 L MCV 90.6 MCH 30.5 MCHC 33.7 RDW 14.4 Plt Count 170 MPV 9.8 Immature Gran % (Auto) 0.4 Neut % (Auto) 57.3 Lymph % (Auto) 36.1 [place] % (Auto) 5.6 Eos % (Auto) 0.4 Baso % (Auto) 0.2 Lymph # (Auto) 1.75 [place] # (Auto) 0.3 Eos # (Auto) 0.0 Baso # (Auto) 0.0 Abs Immat Gran (auto) 0.02 Absolute Neuts (auto) 2.8 Absolute Nucleated RBC 0.0 Nucleated RBC % 0.0 RPR Pending Discharge Plan Discharge Attending physician on discharge: Mariela Worthington Discharging Clinician: Manuel Benjamin Anticipated Discharge Date/Time: 02/18/23 10:08 Patient Disposition: Home, Self-Care Activity: may shower, may drive after 2 weeks and pelvic rest Diet: regular Wound Care Instructions: incision open to air Discharge Instructions: Education: Mom and Baby Guide Given to: Mother Follow-Up: Call your delivering provider's office for an appointment to be seen in: 1 Week Mom and baby should come to the [facility] for the follow-up appointment. Appointment Date/Time: February 20, 2023 at 11:00 am What to expect at your follow-up visit: Blood Pressure Check Call [phone] if you are unable to keep your appointment time. BREAST CARE: * Wear a snug supportive bra. * For engorgement discomfort: Breast Feeding: * Apply warm moist washcloths * Express milk as needed to relieve engorgement * Wear loose clothing Bottle Feeding: * May apply ice packs * For sore nipples: * Identify correct latch-on * Apply warm moist washcloths before and after nursing * Air dry nipples after nursing * May apply Lansinoh cream to nipples ABDOMINAL INCISION: (if applicable) * Allow incision to air dry * Do NOT use lotions for powders on your incision * When showering, allow soap and water to run over the incision, but do not wash incision PERINEAL CARE: * Until bleeding stops, use your tricia bottle after urinating * Change your pad frequently throughout the day * No tub baths until seen by your physician - You may shower ACTIVITY: * Rest as much as possible. * Do not exercise or lift anything heavier than your baby (such as laundry or other children.) * Avoid stairs or driving as much as possible. * Do not put anything into the vagina. No douching, tampons, or sexual activity until seen by physician. NOTIFY PHYSICIAN IF YOU HAVE ANY QUESTIONS OR IF ANY OF THE FOLLOWING SYMPTOMS OCCUR: * If your incision becomes red, swollen, or more painful
[2023-02-16] MEDS: KETOROLAC 30 MG/ML VIAL (*BKC) IV PUSH (11:18)
[2023-02-16] MEDS: MORPHINE SULFATE (*CRX) 2 MG/ML INJ IV PUSH ×2 (12:04→12:25)
[2023-02-16 12:12] LABS: Rapid Plasma Reagin Non-Reactive (NonReactive)
--- NOTE | 2023-02-16 12:38 | OBPPTRN ---
Patient transferred to post room # 291 via stretcher and was transferred via maxi air to bed with out difficulty. and support person present. PT introductions made and plan of care discussed per post op c section, pain management, breast feeding, daily care activities . Pt oriented to unit, room, information board, rooming in, admission packet and security measures. PT received such instructions per one to one discussion mom baby care guide and demonstrations this shift. The patient verbalizes understanding.
[2023-02-16] MEDS: DEXTROSE 5%/0.45% SOD CHL 1,000 ML 125 ML IV CONT ×2 (13:00→20:10)
[2023-02-16] MEDS: HYDROcodone/acetaminophen (*CRX) 5-325 MG TABLET 1 TAB PO ×2 (13:50→18:19)
[2023-02-16] MEDS: SIMETHICONE 80 MG TAB.CHEW PO ×2 (13:51→18:19)
[2023-02-16] MEDS: LANOLIN (LANSINOH) 7.5 GM CREAM 1 APPLIC TOPICAL (16:46)
[2023-02-16] MEDS: ONDANSETRON INJ 4 MG/2 ML VIAL IV PUSH (16:47)
[2023-02-16] MEDS: DOCUSATE SODIUM 100 MG CAPSULE PO (18:19)
[2023-02-16] MEDS: IBUPROFEN 600 MG TABLET PO (18:19)
[2023-02-16] MEDS: diphenhydrAMINE HCl INJ 50 MG/ML VIAL (18:30)
[2023-02-17] MEDS: HYDROcodone/acetaminophen (*CRX) 5-325 MG TABLET 1 TAB PO ×3 (04:10→15:28)
[2023-02-17] MEDS: IBUPROFEN 600 MG TABLET PO ×3 (04:10→20:25)
[2023-02-17 04:20] VITALS: BP 112/74; PULSE 70; RESP 18; TEMP 36.5; O2SAT 99
[2023-02-17 05:56] LABS: Basophils Percent Auto 0.4 % (0.2-1.2); Eosinophils Percent Auto 0.6 % (0-4.4); Hematocrit 33.8 % (37.0-47.0); Hemoglobin 11.2 g/dL (12.0-15.0); Immature Granulocyte Absolute 0.03 K/mm3 (0.00-0.031); Immature Granulocyte Percent A 0.6 % (0-0.5); Lymphocytes Absolute Auto 1.53 K/mm3 (0.9-3.2); Lymphocytes Percent Auto 28.4 % (18.3-44.2); Mean Corpuscular HGB Conc 33.1 g/dl (32-36); Mean Corpuscular Hemoglobin 30.5 pg (26-34); Mean Corpuscular Volume 92.1 fl (80-100); Mean Platelet Volume 9.9 fl (7.4-10.4); Monocytes Absolute Auto 0.3 K/mm3 (0.1-0.6); Monocytes Percent Auto 5.4 % (2.6-8.5); Neutrophils Absolute Auto 3.5 K/mm3 (1.3-6.7); Neutrophils Percent Auto 64.6 % (45.5-73.1); Platelet Count Result 160 k/mm3 (150-375); Red Blood Count 3.67 M/mm3 (4.2-5.4); Red Cell Distribution Width 14.5 % (11.5-14.5); White Blood Count 5.4 K/mm3 (4.5-10.0)
[2023-02-17 07:30] VITALS: BP 102/73; PULSE 74; RESP 18; TEMP 36.6; O2SAT 98
[2023-02-17] MEDS: MULTIVIT/MIN/PREN/FOL AC/IRON TABLET 1 TAB PO (07:49)
[2023-02-17] MEDS: DOCUSATE SODIUM 100 MG CAPSULE PO ×2 (07:49→15:29)
--- NOTE | 2023-02-17 07:49 | PM.OBPNVD ---
OB - PN: Subj Subjective Date/time seen: 02/17/23 07:49 Patient comments: no complaints and pain well controlled baby status: doing well OB - PN: Obj Data Labs 02/17/23 04:13 Labs: Laboratory Results - last 24 hr 02/16/23 02/17/23 06:01 04:13 WBC 5.4 RBC 3.67 L Hgb 11.2 L Hct 33.8 L MCV 92.1 MCH 30.5 MCHC 33.1 RDW 14.5 Plt Count 160 MPV 9.9 Immature Gran % (Auto) 0.6 H Neut % (Auto) 64.6 Lymph % (Auto) 28.4 [place] % (Auto) 5.4 Eos % (Auto) 0.6 Baso % (Auto) 0.4 Lymph # (Auto) 1.53 [place] # (Auto) 0.3 Eos # (Auto) 0.0 Baso # (Auto) 0.0 Abs Immat Gran (auto) 0.03 Absolute Neuts (auto) 3.5 Absolute Nucleated RBC 0.0 Nucleated RBC % 0.0 RPR Non-reactive OB - PN A/P Plan day: 1 Plan: routine care and other (plans micronor for bc) Time Spent With Patient Time: Total time spent is greater than 50% in coordination of care (as documented) at patient's floor/unit and/or counseling patient: Exam Narrative: inc c/d/i : Bimanual exam- vagina & uterus: other (Uterus firm, nt @U)
--- NOTE | 2023-02-17 09:41 | PC.NURSE ---
[id number] Introductions were made and Mother verbalizes she is able to independently latch with appropriate positioning/alignment. She denies any nipple discomfort with most of the latches and is responsively . Reviewed and encouraged mother to work with infant getting a big, open, wide gape to protect the nipple with . Mother states she has breastfed her other children some and is currently meeting outcomes for weight, output, jaundice and adequate feeding frequencies. Mother declines any additional assistance/education at this time. Mother is encouraged to call for assistance if her infant doesn?t latch or there is discomfort with latching. Mother voiced understanding of information shared and the mom reminded of the mom/baby guide for an additional resource.
--- NOTE | 2023-02-17 10:11 | WPDANLDPN2 ---
Anes-Prog Note L&D Date/Time: 02/17/23 10:11 Comfortable throughout: section Neuraxial method: spinal Epidural/Spinal procedure site: clean & non-tender Neuro status: Neuro function grossly intact. Cardiovascular status: normal Respiratory status: normal Airway patency: baseline Mental status: baseline Post-Op hydration status: normal Vital Signs: Last Vital Signs Temp 36.6 C 02/17/23 07:30 Pulse 74 02/17/23 07:30 Resp 18 02/17/23 07:30 BP 102/73 02/17/23 07:30 Pulse Ox 98 02/17/23 07:30 O2 Del Method Room Air 02/17/23 08:00 Pain score (VAS): 2/10 I/O: Intake & Output 02/16/23 02/17/23 02/17/23 23:59 07:59 15:59 Intake Total 1800 2500 Output Total 1450 1200 Balance 350 1300 Post-procedural complaints: none Patient feedback: Patient satisfied with anesthetic care.
--- NOTE | 2023-02-17 10:11 | WPDANLDNPN2 ---
Anes-Prog Note L&D-Neuraxial Date/Time: 02/17/23 10:11 Neuraxial medications: intrathecal PF morphine Opiod-related complaints: none Patient feedback: Patient satisfied with post-operative pain management.
[2023-02-17] MEDS: HYDROcodone/acetaminophen (*CRX) 10-325 MG TABLET 1 TAB PO ×2 (11:28→20:25)
[2023-02-17 20:20] VITALS: BP 119/79; PULSE 81; RESP 18; TEMP 36.8; O2SAT 100
[2023-02-18] MEDS: IBUPROFEN 600 MG TABLET PO ×2 (03:20→09:34)
[2023-02-18] MEDS: HYDROcodone/acetaminophen (*CRX) 5-325 MG TABLET 1 TAB PO (03:20)
--- NOTE | 2023-02-18 07:00 | PC.NURSE ---
PT introductions made and plan of care discussed per post op c section, pain management, breast feeding, daily care activities, and pending discharge to home. PT received such instructions per one to one discussion mom baby care guide and demonstrations this shift. PT sole recipient of such instructions and no barriers to learning. The patient verbalizes understanding.
--- NOTE | 2023-02-18 08:45 | P.PNOB_ITS ---
OB - PN: Subj Subjective Date/time seen: 02/18/23 08:45 Interval history: Ambulating without problems. Patient comments: no complaints, pain well controlled, tolerating diet and flatus present [place] baby status: doing well OB - PN: Obj Data Labs 02/17/23 04:13 OB - PN A/P Assessment and Plan (1) delivery delivered: Code(s): O82 - Encounter for delivery without indication Status: Acute Assessment and Plan: POD 2 s/p section. Doing well. Discharge home. Discharge precautions discussed. Time Spent With Patient Time: Total time spent is greater than 50% in coordination of care (as documented) at patient's floor/unit and/or counseling patient: Exam Const: General: comfortable and no acute distress Resp: Effort & Inspection: normal respiratory effort GI: Other: incision clean dry and intact Extrem: General: normal to inspection and no calf tenderness Psych: Mental Status: mental status grossly normal Affect: normal affect
[2023-02-18 09:00] VITALS: BP 113/76; PULSE 78; RESP 18; TEMP 36.6; O2SAT 100
[2023-02-18] MEDS: SIMETHICONE 80 MG TAB.CHEW PO (09:33)
[2023-02-18] MEDS: DOCUSATE SODIUM 100 MG CAPSULE PO (09:33)
[2023-02-18] MEDS: MULTIVIT/MIN/PREN/FOL AC/IRON TABLET 1 TAB PO (09:33)
[2023-02-18] MEDS: HYDROcodone/acetaminophen (*CRX) 10-325 MG TABLET 1 TAB PO (09:34)
--- NOTE | 2023-02-18 11:54 | PC.NURSE ---
PT discharged to home ambulatory accompanied by spouse , infant and family and taken to waiting car. Follow up appts confirmed
--- NOTE | 2023-02-18 12:09 | PC.NURSE ---
Addendum entered by Ruddy Croft RN 02/18/23 12:10: actual time was at 1130 Original Note: PT received discharge instructions per protocol and verbalized understanding of such care. Patient was given the opportunity to view the discharge video Mother & Baby Care, The First Two Weeks and to ask questions. Patient declined viewing the video and has been given the mother/baby guide for home reference.
[2023-02-20 11:21] VITALS: BP 117/78; PULSE 86; RESP 18; TEMP 37.4; O2SAT 100
== END 2023-02-18 11:54 | disposition home or self-care (01) | DRG 788 ==
LOC: ANHLDR 10:08 → ANHOB2 02-17 09:11 → ANHLDR 02-20 10:12 → ANHOB2 02-20 10:12
PROVIDERS: Admitting Provider Obstetrics & Gynecology Gynecology; Visit Provider Obstetrics & Gynecology
PROC: 10D00Z1 Extraction of Products of Conception, Low, Open Approach (ICD-10-PCS; CPT 59514; principal; 2023-02-16 07:30)
DX: O34.219 Maternal care for unspecified type scar from previous cesarean delivery (principal); Z3A.39 39 weeks gestation of pregnancy; Z37.0 Single live birth
CPT/HCPCS: 36415; 85025; 86592; A9270; J0131; J0690; J1200; J1885; J2270; J2274; J2370; J2405; J2590; J7120

== ENCOUNTER 2024-03-13 09:14 | Emergency (ER) | payer BC, SELFPAY ==
--- NOTE | ~2024-03-13 | XR_ITS ---
Clinical Indication: Chest pain PA and lateral views of the chest: Comparison: 04/06/2023 Findings: The lungs are clear, without evidence of focal consolidation or pleural effusion. Cardiome diastinal silhouette is within normal limits. Bones and soft tissues are unremarkable. Impression: Normal chest. Reviewed, dictated and finalized at location . Impression: Normal chest.
[2024-03-13 09:24] VITALS: BP 123/79; PULSE 93; RESP 16; TEMP 36.2; O2SAT 100
--- NOTE | 2024-03-13 09:47 | ED.URI ---
HPI - URI/Sore Throat General Chief Complaint: Upper Respiratory Infection Stated Complaint: cough,chest hurts when coughing Time Seen by Provider: 03/13/24 09:36 Source: patient and RN notes reviewed Mode of arrival: ambulatory Limitations: no limitations History of Present Illness HPI Narrative: Patient presents today complaining of 2 week history of upper respiratory symptoms. One week ago her nasal symptoms resolved, but cough symptoms started and she has been coughing ever since. Cough is occasionally productive in worse at night. She has also developed some sternal chest wall discomfort that is intermittent and has been present for the past 2-3 days. Several family members have also had similar symptoms. She has been taking some aspirin for discomfort without much relief. No shortness of breath. No history of asthma or COPD. Related Data Allergies Allergy/AdvReac Type Severity Reaction Status Date / Time sumatriptan [From Imitrex] AdvReac Other Verified 02/03/23 11:42 Review of Systems Review of Systems: CONSTITUTIONAL: Denies body aches, fever, chills, or sweats. EYES: Denies visual changes, redness, or discharge. ENT: Denies rhinorrhea, congestion, sore throat, or otalgia. CARDIOVASCULAR: Denies chest pain, palpitations, or edema. RESPIRATORY: Denies dyspnea.+ cough, chest wall pain GASTROINTESTINAL: Denies abdominal pain, nausea, vomiting, or diarrhea. GENITOURINARY: Denies dysuria or hematuria. SKIN: Denies rash, itching, or wounds. MUSCULOSKELETAL: Denies back pain, joint pain, or myalgia. NEUROLOGIC: Denies headache, numbness, tingling, or weakness. PSYCH: Denies depression or anxiety. [facility] Past Medical History Medical History Healthy adult Migraine (normal spontaneous vaginal delivery) x2 Surgical History Surgical History H/O section twins 2019 Family History Family History Grandparent Hypertension Congestive heart failure Mother Hypertension Social History Social History Smoking status: Never smoker Alcohol intake: never Substance use: never Lack of Transportation: No Lack of Food: Never True Current Housing: I Have Housing Concerned About Future Housing: No Difficulty Paying Gas/Electric Bills: No Difficulty Paying for Meds: No Currently Unemployed: No Education: High School Diploma/GED Difficulty w/ Childcare or Family Care: No Gender identity (if verbalized by the patient): Female Spiritual care concerns: No Comments At time of signature, I have reviewed and agree with nursing past medical, surgical, social and family history unless otherwise noted. Please see nursing chart for further information. There is no relevant family history pertinent to the presenting complaint Exam Narrative: GENERAL: Well-appearing, well-nourished, and in no acute distress. HEAD: Normocephalic, atraumatic. EYES: EOMI. No redness or drainage. Conjunctivae normal. ENT: Mucous membranes pink and moist. Nares clear. No rhinorrhea. TMs normal bilaterally. Throat normal. Uvula midline. NECK: Normal AROM. CHEST: No respiratory distress. Clear to auscultation. Chest is nontender to palpation HEART: Regular rate and rhythm. No murmur appreciated. Normal peripheral pulses. EXTREMITIES: Normal range of motion. No edema. SKIN: Warm, dry, no rash. Capillary refill normal. Normal skin turgor. NEURO: No focal deficits. Alert and oriented x3. Gait steady. PSYCH: Normal affect. No signs of depression or anxiety. Course Course Level of Care: Express Care Visit Vital Signs Vital signs: Vital Signs Temperature 97.1 F L 03/13/24 09:24 Pulse Rate 93 03/13/24 09:24 Respiratory Rate 16 03/13/24 09:24 B
== END 2024-03-13 10:15 | disposition home or self-care (01) ==
PROVIDERS: Emergency Provider Nurse Practitioner; PCP Nurse Practitioner
DX: J40 Bronchitis, not specified as acute or chronic (principal); R07.89 Other chest pain
CPT/HCPCS: 71046; 99213; G0463

== ENCOUNTER 2024-09-19 18:35 | Emergency (ER) | payer BC, SELFPAY ==
[2024-09-19 18:39] VITALS: BP 127/82; PULSE 84; RESP 16; TEMP 36.8; O2SAT 100
[2024-09-19 19:10] LABS: EDSTREPNEGPOS1 Positive (Negative)
--- NOTE | 2024-09-19 19:27 | ED_ITS ---
HPI - URI/Sore Throat General Chief Complaint: Upper Respiratory Infection Stated Complaint: sore throat,tongue issue Time Seen by Provider: 09/19/24 19:27 Source: patient, RN notes reviewed and old records reviewed Mode of arrival: ambulatory Limitations: no limitations History of Present Illness HPI Narrative: Patient presents with complaints of 2 day history of sore throat. She reports she has had slight cough and a little bit of a runny nose. She denies any fevers. She does report some chills and sweats. She reports some associated headache and body aches. She has been taking [id number] medication for her symptoms with minimal relief. No drooling or stridor, able to manage all secretions. No other concerns or complaints at this time. Denies any injury or trauma Related Data Allergies Allergy/AdvReac Type Severity Reaction Status Date / Time sumatriptan [From Imitrex] AdvReac Other Verified 09/19/24 18:39 Review of Systems Review of Systems: All systems reviewed & are unremarkable except as noted in HPI and below Constitutional: Constitutional: Reports no additional constitutional complaints, Reports chills and Reports night sweats ENT: Reports system reviewed and no additional complaints, except as documented, Reports headache(s) and Reports sore throat Cardiovascular: Cardiovascular: Reports no additional cardiovascular complaints Respiratory: Respiratory: Reports no additional respiratory complaints Gastrointestinal: Gastrointestinal: Reports no additional gastrointestinal complaints PMF Past Medical History Medical History Healthy adult Migraine (normal spontaneous vaginal delivery) x2 Surgical History Surgical History H/O section twins 2019 Family History Family History Grandparent Hypertension Congestive heart failure Mother Hypertension Social History Social History Smoking status: Never smoker Alcohol intake: never Substance use: never Lack of Transportation: No Lack of Food: Never True Current Housing: I Have Housing Concerned About Future Housing: No Difficulty Paying Gas/Electric Bills: No Difficulty Paying for Meds: No Currently Unemployed: No Education: High School Diploma/GED Difficulty w/ Childcare or Family Care: No Gender identity (if verbalized by the patient): Female Spiritual care concerns: No Comments At the time of my signature, I reviewed and agree with the nursing past medical, surgical, social, and family history. There is no relevant family history pertinent to the patient complaint. Exam Const: General: cooperative, no acute distress, alert and awake Orientation/consciousness: oriented to person, oriented to place and oriented to time HENMT: Head: normal to inspection Ears: TM's normal bilaterally Mouth: Yes moist mucous membranes Throat: posterior oropharynx abnormal erythema Resp: Effort & Inspection: normal respiratory effort and able to speak in complete sentences Auscultation: clear to auscultation bilaterally, no crackles, no rales, no rhonchi and no wheezes Cardio: Palpation: normal PMI Rate: regular rate Rhythm: regular rhythm Heart sounds: S1 normal heart sound present and S2 normal heart sound present Neuro: General: oriented to person, oriented to place and oriented to time Cranial nerves: Yes CN's II-XII intact bilaterally Psych: Appearance: grossly normal Thought process: Normal thought process present Insight: Good insight present (Psych) Judgement: Good judgement present (Psych) Course Course Level of Care: Express Care Visit Vital Signs Vital signs: Vital Signs Temperature 98.2 F 09/19/24 18:39 Pulse Rate 84 09/19/24 18:39 Respiratory Rate 16 09/19/24 18:39 Blood Pressure 127/82 09/19/24 18:39 Pulse Oximetry 100 09/19/24 18:39 Oxygen Delivery Room Air 09/19/24 18:39 Temperature 98.2 F 09/19/24 18:39 Pulse Rate 84 09/19/24 18:39 Respiratory Rate 16 09/19/24 18:39 Blood Pressure 127/82 09/19/24 18:39 Pulse Oximetry 100 09/19/24 18:39 Oxygen Delivery Room Air 09/19/24 18:39 Reviewed MDM - URI/Sore Throat MDM Narrative Medical decision making narrative: patient nontoxic appearing, no distress. Positive rapid strep. Treat approp riately, Discharge instructions reviewed with patient, as well as provided in writing per nursing staff. The instructions also include specific and strict return/GO TO THE ER as well as f/u information. All questions have been answered, and the patient deny any further questions with discharge and discharge plan. Some parts of this dictation were generated by voice recognition software and may contain typographical and/or grammatical inaccuracies. Differential Diagnosis Differential diagnosis: Likely upper respiratory infection, otitis media, viral infection, influenza and pharyngitis Medical Records Attestation: I reviewed the patient's medical records. Lab Data Attestation: I reviewed the patient's lab results. Labs: Lab Results 09/19/24 Range/Units 18:42 POC Grp A Strep Screen Positive (Negative) Discharge Plan Discharge Clinical Impression: Pharyngitis Qualifiers: Pharyngitis/tonsillitis etiology: streptococcus Qualified Code(s): J02.0 - Streptococcal pharyngitis Patient Disposition: Home, Self-Care Condition: Stable Instructions: Antibiotic Form, Pharyngitis (ED) Additional Instructions: Take medications as prescribed. Follow with primary care provider. Emergency d epartment for new or worse symptoms Patient Language: Kazakh Prescriptions: New penicillin V potassium 500 mg tablet 500 mg PO Q12H 10 Days Qty: 20 0RF Follow-up/Referrals: Breezy,RICHARD Whaley [Primary Care Provider] - 2 Weeks Time of Disposition: 19:39
== END 2024-09-19 19:43 | disposition home or self-care (01) ==
PROVIDERS: Emergency Provider Nurse Practitioner Family; PCP Nurse Practitioner
DX: J02.0 Streptococcal pharyngitis (principal)
CPT/HCPCS: 87880; 99213; G0463